=== PATIENT | female | born 1990 | race Caucasian/White ===

== ENCOUNTER 2018-02-08 11:11 | Emergency (ER) | payer SELFPAY ==
--- NOTE | 2018-02-08 12:31 | RAD REPORT ---
EXAM DESCRIPTION: RAD - Foot Left 3 View - 02/08/2018 12:16 pm CLINICAL HISTORY: Left foot pain COMPARISON: None. FINDINGS: Thin lucency is identified involving the base of the metatarsal presumably related to the patient's known prior fracture. Correlation with point tenderness, however, in this location is advis ed. No acute fracture is definitively seen.
--- NOTE | 2018-02-08 13:31 | EDPHYS ---
Physician Documentation [facility] Name: Nataliia Allen Age: 27 yrs Sex: Female : 1990 Arrival Date: 02/08/2018 Time: 11:14 Bed 30 Private MD: ED Physician Fabian Fuller HPI: 02/08 13:29 This 27 yrs old Female presents to ER via Ambulatory with complaints of Foot kb Injury. 13:29 The patient presents with pain, that is acute. The complaints affect the lateral aspect kb of left foot. Context: The problem was sustained outdoors, resulted from a mis-step, into pool, the patient can fully bear weight, the patient is able to ambulate. Onset: The symptoms/episode began/occurred 3 week(s) ago. Modifying factors: The symptoms are alleviated by nothing. the symptoms are aggravated by standing/walking for long peroids. Associated signs and symptoms: The patient has no apparent associated signs or symptoms. Treatment prior to arrival includes: no previous treatment. Severity of symptoms: At their worst the symptoms were mild, moderate, in the emergency department the symptoms are unchanged. The patient has not experienced similar symptoms in the past. The patient has not recently seen a physician. 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 - Social history:: Smoking status: Patient/guardian denies using tobacco. ROS: 13:19 Constitutional: Negative for fever, chills, and weight loss, Cardiovascular: Negative kb for chest pain, palpitations, and edema, Respiratory: Negative for shortness of breath, cough, wheezing, and pleuritic chest pain, Abdomen/GI: Negative for abdominal pain, nausea, vomiting, diarrhea, and constipation, Skin: Negative for injury, rash, and discoloration, Neuro: Negative for headache, weakness, numbness, tingling, and seizure. 13:19 MS/extremity: Positive for pain, of the lateral side of left foot. Exam: 13:28 Constitutional: This is a well developed, well nourished patient who is awake, alert, kb and in no acute distress. Head/Face: Normocephalic, atraumatic. Chest/axilla: Normal chest wall appearance and motion. Nontender with no deformity. No lesions are appreciated. Cardiovascular: Regular rate and rhythm with a normal S1 and S2. No gallops, murmurs, or rubs. Normal PMI, no JVD. No pulse deficits. Respiratory: Lungs have equal breath sounds bilaterally, clear to auscultation and percussion. No rales, rhonchi or wheezes noted. No increased work of breathing, no retractions or nasal flaring. Abdomen/GI: Soft, non-tender, with normal bowel sounds. No distension or tympany. No guarding or rebound. No evidence of tenderness throughout. Skin: Warm, dry with normal turgor. Normal color with no rashes, no lesions, and no evidence of cellulitis. Neuro: Awake and alert, GCS 15, oriented to person, place, time, and situation. Cranial nerves II-XII grossly intact. Motor strength 5/5 in all extremities. Sensory grossly intact. Cerebellar exam normal. Normal gait. 13:28 Musculoskeletal/extremity: Extremities: grossly normal except: noted in the lateral side of left foot: pain, ROM: intact in all extremities, Circulation is intact in all extremities. Sensation intact. Weight bearing: able to fully bear weight. Vital Signs: 11:41 BP 129 / 79; Pulse 86; Resp 20; Temp 98.0; Pulse Ox 98% on R/A; Weight 79.38 kg; Height aj 5 ft. 3 in. (160.02 cm); Pain 4/10; 13:05 BP 118 / 81; Pulse 77; Resp 16; Pulse Ox 99% on R/A; Pain 4/10; em 11:41 Body Mass Index 31.00 (79.38 kg, 160.02 cm) aj MDM: 12:58 Patient medically screened. kb 13:28 Data reviewed: vital signs, nurses notes. Data interpreted: Pulse oximetry: on room air kb is 98 %. Interpretation: normal. Counseling: I had a detailed discussion with the patient and/or guardian regarding: the historical points, exam findings, and any diagnostic results supporting the discharge/admit diagnosis, radiology results, the need for outpatient follow up, a orthopedic surgeon, to return to the emergency department if symptoms worsen or persist or if there are any questions or concerns that arise at home. 02/08 11:44 Order name: Foot Left 3 View XRAY; Complete Time: 12:32 kb Administered Medications: No medications were administered Disposition: 16:33 Co-signature as Attending Physician, Fabian Fuller MD. Disposition: 02/08/18 13:31 Discharged to Home. Impression: Pain in left foot. - Condition is Stable. - Discharge Instructions: Foot Sprain, Musculoskeletal Pain. - Medication Reconciliation Form, Thank You Letter, Antibiotic Education, Prescription Opioid Use form. - Follow up: Emergency Department; When: As needed; Reason: Worsening of condition. Follow up: Private Physician; When: 2 - 3 days; Reason: Recheck today's complaints, Continuance of care, Re-evaluation by your physician. Signatures: Dispatcher [employer] Em Mcclelland, MOTION PICTURE EQUIPMENT SUPERVISOR-C MOTION PICTURE EQUIPMENT SUPERVISOR-Ckb Gricelda Gonzalez, RN RN Gilberto Reese, PUBLIC HEALTH TECHNICIAN PUBLIC HEALTH TECHNICIAN Fabian Farah MD MD Corrections: (The following items were deleted from the chart) 12:32 11:44 Foot Left 3 View+RAD.RAD.BRZ ordered. TEREZAVT EZRA
--- NOTE | 2018-02-08 13:31 | ER ---
Nurse's Notes [facility] Name: Nataliia Allen Age: 27 yrs Sex: Female : 1990 Arrival Date: 02/08/2018 Time: 11:14 Bed 30 Private MD: Diagnosis: Pain in left foot Presentation: 02/08 11:39 Presenting complaint: Patient states: Left foot pain for 3 weeks. Patient reports foot aj was fractured 1 yr ago. Pain is worse with walking. Transition of care: patient was not received from another setting of care. Onset of symptoms was January 17, 2018. Initial Sepsis Screen: Does the patient meet any 2 criteria? No. Patient's initial sepsis screen is negative. Does the patient have a suspected source of infection? No. Patient's initial sepsis screen is negative. Care prior to arrival: None. 11:39 Method Of Arrival: Ambulatory aj 11:39 Acuity: GITA 4 aj Triage Assessment: 11:41 General: Appears in no apparent distress. comfortable, Behavior is calm, cooperative, aj appropriate for age. Pain: Complains of pain in dorsum of left foot Pain currently is 4 out of 10 on a pain scale. Neuro: Level of Consciousness is awake, alert, obeys commands, Oriented to person, place, time, situation, Appropriate for age. Respiratory: Airway is patent Respiratory effort is even, unlabored, Respiratory pattern is regular, symmetrical. Derm: Skin is intact, is healthy with good turgor, Skin is pink, warm \T\ dry. normal. Musculoskeletal: Circulation, motion, and sensation intact. Reports pain in dorsum of left foot. 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 - Social history:: Smoking status: Patient/guardian denies using tobacco. Screenin:14 Abuse screen: Denies threats or abuse. Nutritional screening: No deficits noted. em Tuberculosis screening: No symptoms or risk factors identified. Fall Risk None identified. Assessment: 13:05 General: Appears in no apparent distress. uncomfortable, Behavior is calm, cooperative, em Reports slipping down some stairs about 3 weeks ago, has been walking on it but still hurts, pain has not resolved. Pain: Complains of pain in left foot Pain currently is 4 out of 10 on a pain scale. Neuro: Level of Consciousness is awake, alert, obeys commands, Oriented to person, place, time, situation, Appropriate for age. Cardiovascular: Capillary refill < 3 seconds Patient's skin is warm and dry. Respiratory: Airway is patent Respiratory effort is even, unlabored, Respiratory pattern is regular, symmetrical. GI: Abdomen is flat. : No signs and/or symptoms were reported regarding the genitourinary system. EENT: No signs and/or symptoms were reported regarding the EENT system. Derm: Skin is intact, Skin is pink, warm \T\ dry. Musculoskeletal: Capillary refill < 3 seconds, Range of motion: intact in all extremities, Swelling present in left foot. 13:15 General: The previous assessment is accurate, call light remains within reach. . ss Vital Signs: 11:41 BP 129 / 79; Pulse 86; Resp 20; Temp 98.0; Pulse Ox 98% on R/A; Weight 79.38 kg; Height aj 5 ft. 3 in. (160.02 cm); Pain 4/10; 13:05 BP 118 / 81; Pulse 77; Resp 16; Pulse Ox 99% on R/A; Pain 4/10; em 11:41 Body Mass Index 31.00 (79.38 kg, 160.02 cm) aj ED Course: 11:14 Patient arrived in ED. sb2 11:41 Triage completed. aj 11:41 Arm band placed on left wrist. Patient placed in waiting room, Patient notified of wait aj time. X-ray ordered. 11:44 Em Coffey FNP-C is PHCP. kb 11:44 Fabian Fuller MD is Attending Physician. kb 12:17 Foot Left 3 View XRAY In Process Unspecified. EDMS 12:58 Gilberto Curtis LVN is Primary Nurse. em 13:14 No provider procedures requiring assistance completed. Patient did not have IV access em during this emergency room visit. 13:15 Patient has correct armband on for positive identification. Bed in low position. Call em light in reach. Side rails up X 1. Administered Medications: No medications were administered Outcome: 13:31 Discharge ordered by . kb 13:40 Discharged to home ambulatory. em 13:40 Condition: good 13:40 Discharge instructions given to patient, Instructed on discharge instructions, follow up and referral plans. Demonstrated understanding of instructions, follow-up care. 13:45 Patient left the ED. em Signatures: Dispatcher [employer] EDEm Garcia, TESFAYE-C TESFAYE-Gricelda Vega RN RN Gilberto Reese, HEALTH INFORMATICS ADVISOR HEALTH INFORMATICS ADVISOR em Rosangela Mitchell RN RN Lilly Rosenthal sb2
[2018-02-08 13:48] VITALS: TEMP 98
[2018-02-08 13:50] VITALS: BP 118/81; O2SAT 99
== END 2018-02-08 13:45 | disposition home or self-care (01) ==
LOC: ER 11:11
DX: M79.672 Pain in left foot (principal); F41.9 Anxiety disorder, unspecified
CPT/HCPCS: 99283

== ENCOUNTER 2018-04-25 22:10 | Emergency (ER) | payer SELFPAY ==
[2018-04-25 23:16] LABS: Absolute Lymphocytes (CBC) 2.5 K/uL (0.7-4.9); Absolute Monocytes 0.5 K/uL (0.1-1.3); Absolute Neutrophil 3.1 K/uL (1.8-8.0); Basophils % 1.4 % (0-1.3); Eosinophils % 3.5 % (0-4.4); Hematocrit 36.4 % (36.0-45.0); Lymphocytes % 38.9 % (15.3-44.8); MCH 30.4 pg (27.0-35.0); MPV 7.8 fL (7.6-11.3); Monocytes % 7.5 % (3.3-12.3); RBC Red Blood Cell Count 4.13 M/uL (3.86-4.86)
[2018-04-25 23:31] LABS: Protime INR 0.98
[2018-04-25 23:38] LABS: Urine Blood NEGATIVE (NEG); Urine Glucose NEGATIVE (NEG); Urine pH 6.5 (5.0-7.0)
[2018-04-25 23:39] LABS: Urine Protein NEGATIVE (NEG)
[2018-04-25 23:41] LABS: Barbiturates NEGATIVE (NEGATIVE); Benzodiazepines POSITIVE (NEGATIVE); Cocaine NEGATIVE (NEGATIVE); METHAMPHETAM NEGATIVE (NEGATIVE); Methadone NEGATIVE (NEGATIVE); Opiates NEGATIVE (NEGATIVE); Phencyclidine NEGATIVE (NEGATIVE); THC Cannibis NEGATIVE (NEGATIVE)
[2018-04-25 23:41] LABS: ALT/SGPT 42 U/L (12-78); AST/SGOT 22 U/L (15-37); Alkaline Phosphatase 57 U/L (45-117); BUN Blood Urea Nitrogen 11 mg/dL (7-18); Bicarbonate 24 mmol/L (21-32); Bilirubin Direct 0.1 mg/dL (0-0.2); Bilirubin Total 0.4 mg/dL (0.2-1.0); Glucose Level 81 mg/dL (74-106); Potassium 3.8 mmol/L (3.5-5.1); Protein, Total 7.7 g/dL (6.4-8.2); Sodium Level 146 mmol/L (136-145)
[2018-04-25 23:42] LABS: Alcohol Serum/Plasma 146 mg/dL (0-3)
--- NOTE | 2018-04-26 00:13 | EDPHYS ---
Physician Documentation [facility] Name: Nataliia Allen Age: 27 yrs Sex: Female : 1990 Arrival Date: 04/25/2018 Time: 22:11 Bed 7 Private MD: ED Physician Adryan Bejarano HPI: 04/25 23:05 This 27 yrs old Female presents to ER via EMS with complaints of Suicidal snw Ideation. 23:05 The patient presents to the emergency department with anxiety, over a relationship, snw over work, takes prescribed xanax and occasional ETOH. Onset: The symptoms/episode began/occurred suddenly, and became persistent. Past psychiatric history: Prior diagnosis: anxiety, Psychiatric medications include: Xanax, Primary psychiatric physician: the patient does not have a primary psychiatric physician, Dr. Toth, the patient has not had a prior suicide gesture, the patient does not have a previous inpatient psychiatric history. Associated signs and symptoms: Pertinent positives; anxiety. Severity of symptoms: At their worst the symptoms were severe in the emergency department the symptoms have improved. denies. The patient has not recently seen a physician. Pt states she and her were having an argument. He left the room and she felt he didn't care so she put a handful of xanax in her mouth. Spouse tried to make her spit them out. He called EMS. Spouse told EMS that earlier today pt tried to hang herself with a belt and was banging her head against the wall.. 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 - Social history:: Smoking status: Patient/guardian denies using tobacco, Patient uses alcohol, occasionally. - Ebola Screening: : No symptoms or risks identified at this time. ROS: 23:05 Constitutional: Negative for fever, chills, and weight loss, Eyes: Negative for injury, snw pain, redness, and discharge, ENT: Negative for injury, pain, and discharge, Neck: Negative for injury, pain, and swelling, Cardiovascular: Negative for chest pain, palpitations, and edema, Respiratory: Negative for shortness of breath, cough, wheezing, and pleuritic chest pain, Abdomen/GI: Negative for abdominal pain, nausea, vomiting, diarrhea, and constipation, Back: Negative for injury and pain, : Negative for injury, bleeding, discharge, and swelling, MS/Extremity: Negative for injury and deformity, Skin: Negative for injury, rash, and discoloration, Neuro: Negative for headache, weakness, numbness, tingling, and seizure. 23:05 Psych: Positive for anxiety, suicide gesture, suicidal ideation. Exam: 23:11 Constitutional: This is a well developed, well nourished patient who is awake, alert, snw and in no acute distress. + ETOH Eyes: Pupils equal round and reactive to light, extra-ocular motions intact. Lids and lashes normal. Conjunctiva and sclera are non-icteric and not injected. Cornea within normal limits. Periorbital areas with no swelling, redness, or edema. ENT: Nares patent. No nasal discharge, no septal abnormalities noted. Tympanic membranes are normal and external auditory canals are clear. Oropharynx with no redness, swelling, or masses, exudates, or evidence of obstruction, uvula midline. Mucous membranes moist. Neck: Trachea midline, no thyromegaly or masses palpated, and no cervical lymphadenopathy. Supple, full range of motion without nuchal rigidity, or vertebral point tenderness. No Meningismus. Chest/axilla: Normal chest wall appearance and motion. Nontender with no deformity. No lesions are appreciated. Cardiovascular: Regular rate and rhythm with a normal S1 and S2. No gallops, murmurs, or rubs. Normal PMI, no JVD. No pulse deficits. 23:11 Respiratory: Lungs have equal breath sounds bilaterally, clear to auscultation and percussion. No rales, rhonchi or wheezes noted. No increased work of breathing, no retractions or nasal flaring. Abdomen/GI: Soft, non-tender, with normal bowel sounds. No distension or tympany. No guarding or rebound. No evidence of tenderness throughout. Back: No spinal tenderness. No costovertebral tenderness. Full range of motion. Skin: Warm, dry with normal turgor. Normal color with no rashes, no lesions, and no evidence of cellulitis. MS/ Extremity: Pulses equal, no cyanosis. Neurovascular intact. Full, normal range of motion. Neuro: Awake and alert, GCS 15, oriented to person, place, time, and situation. Cranial nerves II-XII grossly intact. Motor strength 5/5 in all extremities. Sensory grossly intact. Cerebellar exam normal. Normal gait. 23:11 Head/face: Noted is contusion, that is superficial, of the forehead, ecchymosis, that is mild. 23:11 Psych: Behavior/mood is anxious, Affect is calm, Oriented to person, place, time, Patient has no thoughts/intents to harm self or others. Judgement / Insight is impaired. Vital Signs: 22:23 BP 104 / 74; Pulse 94; Resp 18; Temp 98.7(O); Pulse Ox 98% on R/A; Weight 72.57 kg; ea Height 5 ft. 7 in. (170.18 cm); Pain 6/10; 23:28 BP 102 / 73; Pulse 91; Resp 18; Pulse Ox 98% on R/A; tl2 04/26 00:28 BP 117 / 82; Pulse 102; Resp 18; Pulse Ox 100% on R/A; tl2 04/25 22:23 Body Mass Index 25.06 (72.57 kg, 170.18 cm) ea MDM: 04/25 22:16 Patient medically screened. snw 04/26 00:14 Data reviewed: vital signs, nurses notes. Data interpreted: Pulse oximetry: on room air snw is 98 %. Interpretation: normal. Counseling: I had a detailed discussion with the patient and/or guardian regarding: the historical points, exam findings, and any diagnostic results supporting the discharge/admit diagnosis, lab results, the need for outpatient follow up, to return to the emergency department if symptoms worsen or persist or if there are any questions or concerns that arise at home. Other consultation: [facility] health deputy. Special discussion: Based on the history and exam findings, there is no indication for further emergent testing or inpatient evaluation. I discussed with the patient/guardian the need to see the psychiatrist for further evaluation of the symptoms. 04/25 22:49 Order name: Acetaminophen; Complete Time: 23:45 snw 04/25 22:49 Order name: Basic Metabolic Panel; Complete Time: 23:45 snw 04/25 22:49 Order name: CBC with Diff; Complete Time: 23:33 snw 04/25 22:49 Order name: ETOH Level; Complete Time: 23:45 snw 04/25 22:49 Order name: Hepatic Function; Complete Time: 23:45 snw 04/25 22:49 Order name: PT-INR; Complete Time: 23:39 snw 04/25 22:49 Order name: Urine Test (obtain specimen); Complete Time: 23:27 snw 04/25 22:49 Order name: Ptt, Activated; Complete Time: 23:39 snw 04/25 22:49 Order name: Salicylate; Complete Time: 00:03 snw 04/25 22:49 Order name: Urine Drug Screen; Complete Time: 23:45 snw 04/25 22:49 Order name: EKG; Complete Time: 22:50 snw 04/25 23:30 Order name: Urine Dipstick--Ancillary (enter results); Complete Time: 23:39 ms 04/25 23:30 Order name: Urine --Ancillary (enter results); Complete Time: 23:39 ms 04/25 22:49 Order name: EKG - Nurse/Tech; Complete Time: 23:09 snw 04/25 22:49 Order name: IV Saline Lock; Complete Time: 23:09 snw 04/25 22:49 Order name: Labs collected and sent; Complete Time: 23:09 snw 04/25 22:49 Order name: Urine Dipstick-Ancillary (obtain specimen); Complete Time: 23:28 snw Administered Medications: 00:27 Drug: Tylenol 1000 mg Route: PO; tl2 00:29 Follow up: Response: No adverse reaction; Medication administered at discharge. tl2 Disposition: 08:32 Co-signature as Attending Physician, Adryan Bejarano MD I agree with the assessment and dawson plan of care. Disposition: 04/26/18 00:12 Discharged to Home. Impression: Anxiety disorder, unspecified, Alcohol use, unspecified with intoxication, unspecified. - Condition is Stable. - Discharge Instructions: Alcohol Intoxication, Social Anxiety Disorder, Generalized Anxiety Disorder. - Medication Reconciliation Form, Thank You Letter, Antibiotic Education, Prescription Opioid Use form. - Follow up: Private Physician; When: 1 - 2 days; Reason: Recheck today's complaints, Continuance of care, Re-evaluation by your physician. Follow up: Emergency Department; When: As needed; Reason: Worsening of condition. Signatures: Dispatcher [employer] EDMS Adryan Bejarano MD MD cha Therrien, Shelly, MACHINE HEEL SEAT FITTER-C MACHINE HEEL SEAT FITTER-Csnw Violeta Murillo, RN RN tl2 Lety Caraballo RN RN ea Corrections: (The following items were deleted from the chart) 00:30 00:12 04/26/2018 00:12 Discharged to Home. Impression: Anxiety disorder, unspecified; tl2 Alcohol use, unspecified with intoxication, unspecified. Condition is Stable. Forms are Medication Reconciliation Form, Thank You Letter, Antibiotic Education, Prescription Opioid Use. Follow up: Private Physician; When: 1 - 2 days; Reason: Recheck today's complaints, Continuance of care, Re-evaluation by your physician. Follow up: Emergency Department; When: As needed; Reason: Worsening of condition. snw
--- NOTE | 2018-04-26 00:13 | ER ---
Nurse's Notes [facility] Name: Nataliia Allen Age: 27 yrs Sex: Female : 1990 Arrival Date: 04/25/2018 Time: 22:11 Bed 7 Private MD: Diagnosis: Anxiety disorder, unspecified;Alcohol use, unspecified with intoxication, unspecified Presentation: 04/25 22:18 Presenting complaint: EMS states: Reports pt was at home and had a disagreement with ea her she tried getting a pill bottle out of his hand and fell and hit her head. Pt reported she had a few beers. Transition of care: patient was not received from another setting of care. Onset of symptoms was April 25, 2018. Risk Assessment: Do you want to hurt yourself or someone else? Patient reports no desire to harm self or others. Initial Sepsis Screen: Does the patient meet any 2 criteria? No. Patient's initial sepsis screen is negative. Does the patient have a suspected source of infection? No. Patient's initial sepsis screen is negative. Care prior to arrival: Medication(s) given: xanax 1mg x 2. 22:18 Method Of Arrival: EMS: [facility] ea 22:18 Acuity: GITA 2 ea Triage Assessment: 22:23 General: Appears in no apparent distress. Behavior is calm, cooperative, appropriate ea for age. Pain: Complains of pain in headache Pain does not radiate. Pain currently is 7 out of 10 on a pain scale. Quality of pain is described as aching. 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 - Social history:: Smoking status: Patient/guardian denies using tobacco, Patient uses alcohol, occasionally. - Ebola Screening: : No symptoms or risks identified at this time. Screenin:25 Nutritional screening: No deficits noted. Tuberculosis screening: No symptoms or risk ea factors identified. 22:26 Abuse screen: Denies threats or abuse. ea 22:26 Fall Risk Fall in past 12 months (25 points). ea Assessment: 22:48 General: Appears in no apparent distress. comfortable, Behavior is calm, cooperative, tl2 appropriate for age. Pain: Complains of pain in forehead. Neuro: Level of Consciousness is awake, alert, obeys commands, Oriented to person, place, time, situation. Cardiovascular: Denies chest pain. Respiratory: Airway is patent Respiratory effort is even, unlabored, Respiratory pattern is regular, symmetrical. GI: No signs and/or symptoms were reported involving the gastrointestinal system. : No signs and/or symptoms were reported regarding the genitourinary system. Derm: Skin is pink, warm \T\ dry. 04/26 00:00 Reassessment: Patient appears in no apparent distress at this time. Patient and/or tl2 family updated on plan of care and expected duration. Pain level reassessed. Patient is alert, oriented x 3, equal unlabored respirations, skin warm/dry/pink. [facility] at bedside. 00:28 Reassessment: Patient appears in no apparent distress at this time. [facility] approved tl2 for pt for discharge/outpatient. Pt verbalized understanding of discharge instructions and need for follow up. Psych: 04/25 22:45 Subjective: Patient's mood is elevated, Delusions are denied, Hallucinations are denied tl2 Having thoughts of Pt states she did not want to hurt herself on purpose. Tow stated that he got a report from an officer that she tried to hang herself with a belt and was banging her head against the wall. Objective: Patient is cooperative, Speech is normal, Affect is appropriate. Interventions: Removed personal items and placed in bag. Patient placed in hospital gown. Searched person for dangerous items. Belonging list filled out. Suicide Risk Assessment: Sad Person Scale: Sex of patient: Female: Score 0 points. Age of patient: Score 1 point if patient 15-34. Depression: Score 1 point if signs of depression are present. Previous Attempt: Score 0 point if patient has not previously attempted suicide. Substance Abuse: Score 1 point if patient abuses alcohol or drugs. Rational Thinking: Score 0 point if patient has rational thinking. Social Support: Score 0 if social support is present/available. Organized Plan: Score 0 if patient did not have an organized plan in place. Relationship: Score 0 point if patient has a spouse or domestic partner. Chronic Sickness: Score 0 point if patient does not have a chronic illness, debilitating, or severe disorder. TOTAL POINTS: If total points are 3-4, proposed clinical action is close follow-up/consider hospitalization. Safety Checks: Personal items have been removed. Door is open. No visitors are present at this time. Patient uses 2 beers. Commitment: Patient will be a voluntary commitment. Vital Signs: 22:23 BP 104 / 74; Pulse 94; Resp 18; Temp 98.7(O); Pulse Ox 98% on R/A; Weight 72.57 kg; ea Height 5 ft. 7 in. (170.18 cm); Pain 6/10; 23:28 BP 102 / 73; Pulse 91; Resp 18; Pulse Ox 98% on R/A; tl2 04/26 00:28 BP 117 / 82; Pulse 102; Resp 18; Pulse Ox 100% on R/A; tl2 04/25 22:23 Body Mass Index 25.06 (72.57 kg, 170.18 cm) ea ED Course: 04/25 22:11 Patient arrived in ED. tl2 22:14 [facility] Hawthorne F[facility]-C [facility]. snw 22:14 Adryan Bejarano MD is Attending Physician. snw 22:21 Triage completed. ea 22:25 Arm band placed on right wrist. Patient placed in an exam room, on a stretcher. ea 22:25 Patient has correct armband on for positive identification. Placed in gown. Bed in low ea position. Call light in reach. 22:51 Violeta Murillo, DHARMESH is Primary Nurse. tl2 23:17 Inserted saline lock: 20 gauge in right antecubital area, using aseptic technique. tl2 Blood collected. 23:30 Safety checks: Items removed: yes. Door open/sign placed on door: yes. Family/friend mw2 present: no. Sitter present: Yes. 23:45 Safety checks: Items removed: yes. Door open/sign placed on door: yes. Family/friend mw2 present: no. Sitter present: Yes. Other: [facility] field sales representative here to talk with patient. 04/26 00:00 Safety checks: Items removed: yes. Door open/sign placed on door: yes. Family/friend mw2 present: no. Sitter present: Yes. 00:15 Safety checks: Items removed: yes. Door open/sign placed on door: yes. Family/friend mw2 present: no. Sitter present: Yes. Safety checks: Items removed: yes. Door open/sign placed on door: yes. Family/friend present: no. Sitter present: Yes. 00:28 No provider procedures requiring assistance completed. IV discontinued, intact, tl2 bleeding controlled, No redness/swelling at site. Pressure dressing applied. Administered Medications: 00:27 Drug: Tylenol 1000 mg Route: PO; tl2 00:29 Follow up: Response: No adverse reaction; Medication administered at discharge. tl2 Outcome: 00:12 Discharge ordered by . snisidoro 00:28 Discharged to home ambulatory, with family. tl2 00:28 Condition: stable 00:28 Discharge instructions given to patient, Instructed on discharge instructions, follow up and referral plans. Demonstrated understanding of instructions, follow-up care. 00:30 Patient left the ED. tl2 Signatures: Lore Hawthorne, CROSS COUNTRY/TRACK AND FIELD COACH-C CROSS COUNTRY/TRACK AND FIELD COACH-Csnw Violeta Murillo RN DHARMESH 2 Lety Caraballo RN RN ea [place], MyKena mw2 Corrections: (The following items were deleted from the chart) 04/25 23:37 23:26 Safety checks: Items removed: yes. Door open/sign placed on door: yes. mw2 Family/friend present: no. Sitter present: Yes. mw2 04/26 00:28 00:28 Reassessment: Patient appears in no apparent distress at this time. [facility]patient. tl2
[2018-04-26] MEDS ORDERED: ACETAMINOPHEN 500 MG TAB ONE (00:22)
[2018-04-26 00:34] VITALS: TEMP 98.7
[2018-04-26 00:36] VITALS: BP 117/82; O2SAT 100
--- NOTE | 2018-04-26 10:00 | EKG ---
Test Date: 2018-04-25 Test Time: 23:10:34 Grief Counselor: ADAM MEASUREMENT RESULTS: Intervals: Rate: 86 WI: 154 QRSD: 80 QT: 348 QTc: 416 Kimberly: P: 44 WI: 154 QRS: 64 T: 47 INTERPRETIVE STATEMENTS: Normal sinus rhythm with sinus arrhythmia Normal ECG Compared to ECG 09/18/2017 17:48:08 No significant changes Electronically Signed On 04-26-18 09:59:37 CDT by Calvin Del Rosario
== END 2018-04-26 00:30 | disposition home or self-care (01) ==
LOC: ER 22:10
DX: F41.9 Anxiety disorder, unspecified (principal); R45.851 Suicidal ideations
CPT/HCPCS: 36415; 80048; 80076; 80307; 80320; 80329; 81003; 81025; 85025; 85610; 85730; 93005; 99285

== ENCOUNTER 2018-10-14 09:32 | Emergency (ER) | payer SELFPAY ==
[2018-10-14 09:54] LABS: Urine Blood NEGATIVE (NEG); Urine Glucose NEGATIVE (NEG); Urine Protein TRACE (NEG)
[2018-10-14 10:03] LABS: Absolute Lymphocytes (CBC) 0.3 K/uL (0.7-4.9); Absolute Monocytes 0.6 K/uL (0.1-1.3); Absolute Neutrophil 12.9 K/uL (1.8-8.0); Basophils % 0.1 % (0-1.3); Eosinophils % 0.5 % (0-4.4); Hematocrit 42.2 % (36.0-45.0); Lymphocytes % 2.1 % (15.3-44.8); MPV 7.6 fL (7.6-11.3); RBC Red Blood Cell Count 4.71 M/uL (3.86-4.86)
[2018-10-14 10:20] LABS: Albumin 4.3 g/dL (3.4-5.0); Bilirubin Direct 0.1 mg/dL (0-0.2); Bilirubin Total 0.5 mg/dL (0.2-1.0); Potassium 3.9 mmol/L (3.5-5.1); Protein, Total 8.8 g/dL (6.4-8.2)
[2018-10-14 10:26] LABS: Blood Morphology Comment NOT SEEN (NOT SEEN); Platelet Estimate ADEQ; Urine White Blood Cell Casts OK
--- NOTE | 2018-10-14 11:11 | RAD REPORT ---
EXAM DESCRIPTION: CTAbdomen Pelvis W Contrast - 10/14/2018 10:45 am CLINICAL HISTORY: Abdominal pain. ABD PAIN COMPARISON: Abdomen Pelvis W Contrast dated 08/19/2016 TECHNIQUE: Biphasic CT imaging of the abdomen and pelvis was performed with 100 ml non-ionic IV cont rast. All CT scans are performed using dose optimization technique as appropriate and may include automated exposure control or mA/KV adjustment according to patient size. FINDINGS: The lung bases are clear. The liver, spleen, pancreas, adrenal glands and kidneys are within normal limits. No bowel obstruction, free air, free fluid or abscess. The appendix is normal. No evidence of signi ficant lymphadenopathy. No suspicious bony findings. IMPRESSION: No acute intra-abdominal or pelvic finding.
--- NOTE | 2018-10-14 11:21 | ER ---
Nurse's Notes [facility] Name: Nataliia Allen Age: 27 yrs Sex: Female : 1990 Arrival Date: 10/14/2018 Time: 09:35 Bed 13 Private MD: Diagnosis: Vomiting Presentation: 10/14 09:39 Presenting complaint: Patient states: Nausea, vomiting, and diarrhea started about 0400 rb1 this morning. Pt. stated, "I feel like I have food poisoning.". Transition of care: patient was not received from another setting of care. Onset of symptoms was October 14, 2018 at 04:00. Risk Assessment: Do you want to hurt yourself or someone else? Patient reports no desire to harm self or others. Initial Sepsis Screen: Does the patient meet any 2 criteria? No. Patient's initial sepsis screen is negative. Does the patient have a suspected source of infection? No. Patient's initial sepsis screen is negative. Care prior to arrival: None. 09:39 Method Of Arrival: Ambulatory rb1 09:39 Acuity: GITA 3 rb1 Triage Assessment: 09:39 General: Appears in no apparent distress. comfortable, Behavior is calm, cooperative, rb1 Reports chills for fever for feeling ill for 0-12 hours. Pain: Complains of pain in abdomen Pain began 0400 this morning. Neuro: Level of Consciousness is awake, alert, obeys commands, Oriented to person, place, time, situation. Cardiovascular: Capillary refill < 3 seconds is brisk in bilateral fingers. Respiratory: Reports shortness of breath Airway is patent Respiratory effort is even, unlabored, Respiratory pattern is regular, symmetrical. GI: Reports diarrhea, nausea, vomiting, since 0400 this morning. : No signs and/or symptoms were reported regarding the genitourinary system. Derm: Skin is pink, warm \\T\\ dry. 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 - Social history:: Smoking status: Patient/guardian denies using tobacco. - Ebola Screening: : Patient negative for fever greater than or equal to 101.5 degrees Fahrenheit, and additional compatible Ebola Virus Disease symptoms. Screenin:39 Abuse screen: Denies threats or abuse. Nutritional screening: pt. unable to eat or rb1 drink anything without vomiting. Tuberculosis screening: No symptoms or risk factors identified. Fall Risk None identified. Assessment: 09:39 General: See triage assessment. rb1 10:30 Reassessment: Patient appears in no apparent distress at this time. No changes from rb1 previously documented assessment. 11:30 Reassessment: Patient appears in no apparent distress at this time. Patient and/or rb1 family updated on plan of care and expected duration. Pain level reassessed. Patient is alert, oriented x 3, equal unlabored respirations, skin warm/dry/pink. Family at bedside. Vital Signs: 09:39 BP 110 / 78; Pulse 104; Resp 16; Temp 97.6(O); Pulse Ox 99% on R/A; Weight 77.11 kg rb1 (R); Height 5 ft. 3 in. (160.02 cm) (R); Pain 8/10; 10:39 BP 99 / 75; Pulse 97; Resp 18; Pulse Ox 100% on R/A; dh3 11:39 BP 98 / 72; Pulse 95; Resp 17; Pulse Ox 99% on R/A; rb1 09:39 Body Mass Index 30.11 (77.11 kg, 160.02 cm) [facility] ED Course: 09:35 Patient arrived in ED. tw3 09:38 Kandy Nieves, RN is Primary Nurse. rb1 09:39 Shadia Kaye FNP is [facility]. nh 09:39 Dany Thorne MD is Attending Physician. nh 09:39 Arm band placed on right wrist. rb1 09:39 Patient has correct armband on for positive identification. Bed in low position. Call rb1 light in reach. Side rails up X 1. Pulse ox on. NIBP on. 09:52 Triage completed. rb1 09:54 Initial lab(s) drawn, by me, sent to lab. Inserted saline lock: 20 gauge in right dh3 antecubital area, using aseptic technique. Blood collected. 10:45 CT Abd/Pelvis - W/Contrast In Process Unspecified. EDMS 11:54 No provider procedures requiring assistance completed. IV discontinued, intact, rb1 bleeding controlled, No redness/swelling at site. Pressure dressing applied. Administered Medications: 11:50 Drug: Zofran 4 mg Route: PO; rb1 11:50 Follow up: Response: Medication administered at discharge. rb1 Outcome: 11:21 Discharge ordered by . wi 11:54 Patient left the ED. rb1 11:54 Discharged to home ambulatory, with family. rb1 11:54 Condition: stable 11:54 Discharge instructions given to patient, Instructed on discharge instructions, follow up and referral plans. medication usage, Demonstrated understanding of instructions, follow-up care, medications, Prescriptions given X 2. Signatures: Dispatcher [employer] EDMS Shadia Kaye, GERMAN TEACHER GERMAN TEACHER Kandy Monk RN RN rb1 Brian, Taniya 3 Sasha Zapata 3 Corrections: (The following items were deleted from the chart) 12:03 12:02 Patient left the ED. rb1 rb1
--- NOTE | 2018-10-14 11:21 | EDPHYS ---
Physician Documentation [facility] Name: Nataliia Allen Age: 27 yrs Sex: Female : 1990 Arrival Date: 10/14/2018 Time: 09:35 Bed 13 Private MD: ED Physician Dany Thorne HPI: 10/14 11:18 This 27 yrs old Female presents to ER via Ambulatory with complaints of nh Vomiting, Abdominal Pain. 11:18 The patient presents to the emergency department with nausea, vomiting, diarrhea, nh abdominal pain. Onset: The symptoms/episode began/occurred this morning. Possible causes: unknown. The symptoms are aggravated by food , The symptoms are alleviated by nothing. Associated signs and symptoms: The patient has no apparent associated signs or symptoms. Severity of symptoms: At their worst the symptoms were moderate just prior to arrival, in the emergency department the symptoms are unchanged. The patient has not experienced similar symptoms in the past. The patient has not recently seen a physician. 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 - Social history:: Smoking status: Patient/guardian denies using tobacco. - Ebola Screening: : Patient negative for fever greater than or equal to 101.5 degrees Fahrenheit, and additional compatible Ebola Virus Disease symptoms. ROS: 11:18 Constitutional: Negative for fever, chills, and weight loss, Eyes: Negative for injury, nh pain, redness, and discharge, ENT: Negative for injury, pain, and discharge, Neck: Negative for injury, pain, and swelling, Cardiovascular: Negative for chest pain, palpitations, and edema, Respiratory: Negative for shortness of breath, cough, wheezing, and pleuritic chest pain, Back: Negative for injury and pain, : Negative for injury, bleeding, discharge, and swelling, MS/Extremity: Negative for injury and deformity, Skin: Negative for injury, rash, and discoloration, Neuro: Negative for headache, weakness, numbness, tingling, and seizure, Psych: Negative for depression, anxiety, suicide ideation, homicidal ideation, and hallucinations, Allergy/Immunology: Negative for hives, rash, and allergies, Endocrine: Negative for neck swelling, polydipsia, polyuria, polyphagia, and marked weight changes, Hematologic/Lymphatic: Negative for swollen nodes, abnormal bleeding, and unusual bruising. 11:18 Abdomen/GI: Positive for abdominal pain, nausea and vomiting, nausea, vomiting, and diarrhea. Exam: 11:18 Constitutional: This is a well developed, well nourished patient who is awake, alert, nh and in no acute distress. Head/Face: Normocephalic, atraumatic. Eyes: Pupils equal round and reactive to light, extra-ocular motions intact. Lids and lashes normal. Conjunctiva and sclera are non-icteric and not injected. Cornea within normal limits. Periorbital areas with no swelling, redness, or edema. ENT: Nares patent. No nasal discharge, no septal abnormalities noted. Tympanic membranes are normal and external auditory canals are clear. Oropharynx with no redness, swelling, or masses, exudates, or evidence of obstruction, uvula midline. Mucous membranes moist. Neck: Trachea midline, no thyromegaly or masses palpated, and no cervical lymphadenopathy. Supple, full range of motion without nuchal rigidity, or vertebral point tenderness. No Meningismus. Chest/axilla: Normal chest wall appearance and motion. Nontender with no deformity. No lesions are appreciated. Cardiovascular: Regular rate and rhythm with a normal S1 and S2. No gallops, murmurs, or rubs. Normal PMI, no JVD. No pulse deficits. Respiratory: Lungs have equal breath sounds bilaterally, clear to auscultation and percussion. No rales, rhonchi or wheezes noted. No increased work of breathing, no retractions or nasal flaring. Back: No spinal tenderness. No costovertebral tenderness. Full range of motion. Skin: Warm, dry with normal turgor. Normal color with no rashes, no lesions, and no evidence of cellulitis. MS/ Extremity: Pulses equal, no cyanosis. Neurovascular intact. Full, normal range of motion. Neuro: Awake and alert, GCS 15, oriented to person, place, time, and situation. Cranial nerves II-XII grossly intact. Motor strength 5/5 in all extremities. Sensory grossly intact. Cerebellar exam normal. Normal gait. Psych: Awake, alert, with orientation to person, place and time. Behavior, mood, and affect are within normal limits. 11:18 Abdomen/GI: Inspection: abdomen appears normal, Bowel sounds: normal, Palpation: mild abdominal tenderness, in all quadrants. Vital Signs: 09:39 BP 110 / 78; Pulse 104; Resp 16; Temp 97.6(O); Pulse Ox 99% on R/A; Weight 77.11 kg rb1 (R); Height 5 ft. 3 in. (160.02 cm) (R); Pain 8/10; 10:39 BP 99 / 75; Pulse 97; Resp 18; Pulse Ox 100% on R/A; dh3 11:39 BP 98 / 72; Pulse 95; Resp 17; Pulse Ox 99% on R/A; rb1 09:39 Body Mass Index 30.11 (77.11 kg, 160.02 cm) rb1 MDM: 09:39 Patient medically screened. ia 11:18 Data reviewed: vital signs, nurses notes, lab test result(s), radiologic studies, I nh have discussed the patient's presentation/case with the attending Emergency Department Physician; and as a result, I will discharge patient. Counseling: I had a detailed discussion with the patient and/or guardian regarding: the historical points, exam findings, and any diagnostic results supporting the discharge/admit diagnosis, lab results, radiology results, the need for outpatient follow up, to return to the emergency department if symptoms worsen or persist or if there are any questions or concerns that arise at home. 10/14 09:46 Order name: Basic Metabolic Panel; Complete Time: 10:28 ia 10/14 09:46 Order name: CBC with Diff; Complete Time: 10:28 ia 10/14 09:46 Order name: Creatinine for Radiology; Complete Time: 10:28 ia 10/14 09:46 Order name: Hepatic Function; Complete Time: 10:28 ia 10/14 09:46 Order name: Lipase; Complete Time: 10:28 ia 10/14 09:50 Order name: Urine Dipstick--Ancillary (enter results); Complete Time: 10:28 10/14 09:46 Order name: IV Saline Lock; Complete Time: 09:58 ia 10/14 09:46 Order name: Labs collected and sent; Complete Time: 09:58 ia 10/14 09:46 Order name: CT Abd/Pelvis - W/Contrast; Complete Time: 11:14 ia 10/14 09:50 Order name: Urine --Ancillary (enter results); Complete Time: 10:28 bd 10/14 10:16 Order name: CBC Smear Scan; Complete Time: 10:28 EDMS Administered Medications: 11:50 Drug: Zofran 4 mg Route: PO; rb1 11:50 Follow up: Response: Medication administered at discharge. rb1 Disposition: 13:57 Co-signature as Attending Physician, Dany Thorne MD. rn Disposition: 10/14/18 11:21 Discharged to Home. Impression: Vomiting. - Condition is Stable. - Discharge Instructions: Viral Gastroenteritis, Adult. - Prescriptions for Bentyl 20 mg Oral Tablet - take 1 tablet by ORAL route every 6 hours As needed; 20 tablet. Zofran 4 mg Oral Tablet - take 1 tablet by ORAL route every 6 hours As needed; 20 tablet. - Medication Reconciliation Form, Thank You Letter, Antibiotic Education, Prescription Opioid Use form. - Follow up: Private Physician; When: 2 - 3 days; Reason: Recheck today's complaints. - Problem is new. - Symptoms are unchanged. Signatures: Dispatcher [employer] EDMS Shadia Kaye, MUSEUM SPECIALIST MUSEUM SPECIALIST ia Dany Thorne MD MD rn Barber, Rebecca, RN RN rb1 Corrections: (The following items were deleted from the chart) 11:54 11:21 10/14/2018 11:21 Discharged to Home. Impression: Vomiting. Condition is Stable. rb1 Forms are Medication Reconciliation Form, Thank You Letter, Antibiotic Education, Prescription Opioid Use. Follow up: Private Physician; When: 2 - 3 days; Reason: Recheck today's complaints. Problem is new. Symptoms are unchanged. ia 12:02 11:54 10/14/2018 11:21 Discharged to Home. Impression: Vomiting. Condition is Stable. rb1 Discharge Instructions: Viral Gastroenteritis, Adult. Prescriptions for Bentyl 20 mg Oral Tablet - take 1 tablet by ORAL route every 6 hours As needed; 20 tablet, Zofran 4 mg Oral Tablet - take 1 tablet by ORAL route every 6 hours As needed; 20 tablet. and Forms are Medication Reconciliation Form, Thank You Letter, Antibiotic Education, Prescription Opioid Use. Follow up: Private Physician; When: 2 - 3 days; Reason: Recheck today's complaints. Problem is new. Symptoms are unchanged. rb1
[2018-10-14] MEDS ORDERED: ONDANSETRON 4 MG (ODT) TAB ONE (11:54)
[2018-10-14 12:01] VITALS: TEMP 97.6
[2018-10-14 12:21] VITALS: BP 98/72; O2SAT 99
== END 2018-10-14 12:02 | disposition home or self-care (01) ==
LOC: ER 09:32
DX: R11.10 Vomiting, unspecified (principal); F41.9 Anxiety disorder, unspecified
CPT/HCPCS: 36415; 74177; 80048; 80076; 81003; 81025; 83690; 85025; 99284; Q9967

== ENCOUNTER 2019-01-14 21:58 | Emergency (ER) | payer SELFPAY ==
[2019-01-14 23:11] LABS: Absolute Monocytes 0.7 K/uL (0.1-1.3); Absolute Neutrophil 6.9 K/uL (1.8-8.0); Basophils % 0.9 % (0-1.3); Lymphocytes % 27.5 % (15.3-44.8); MPV 8.4 fL (7.6-11.3); Monocytes % 6.1 % (3.3-12.3); RBC Red Blood Cell Count 4.15 M/uL (3.86-4.86)
[2019-01-14 23:12] LABS: Protime INR 1.02
[2019-01-14 23:25] LABS: ALT/SGPT 26 U/L (12-78); AST/SGOT 14 U/L (15-37); Albumin 4.3 g/dL (3.4-5.0); Alkaline Phosphatase 60 U/L (45-117); BUN Blood Urea Nitrogen 9 mg/dL (7-18); Bicarbonate 29 mmol/L (21-32); Bilirubin Direct 0.2 mg/dL (0-0.2); Bilirubin Total 0.5 mg/dL (0.2-1.0); Glucose Level 86 mg/dL (74-106); Magnesium 2.2 mg/dL (1.8-2.4); NT PRO-BNP 23 pg/mL (<125); Potassium 3.7 mmol/L (3.5-5.1); Protein, Total 7.8 g/dL (6.4-8.2); Sodium Level 143 mmol/L (136-145); Troponin (Emerg Dept Use Only) < 0.02 ng/mL (0.0-0.045)
[2019-01-14] MEDS ORDERED: DIPHENHYDRAMINE 50 MG/ML VIAL ONE (23:46)
[2019-01-14] MEDS ORDERED: METOCLOPRAMIDE 10 MG/2mL INJ ONE (23:46)
--- NOTE | 2019-01-15 00:31 | ER ---
Nurse's Notes [facility] Name: Nataliia Allen Age: 28 yrs Sex: Female : 1990 Arrival Date: 01/14/2019 Time: 22:03 Bed 8 Private MD: Diagnosis: Headache;Chest pain, unspecified Presentation: 01/14 22:13 Presenting complaint: Patient states: chest pain to center of chest this morning. ak1 blurred "cloudy vision" out of left eye. pt c/o throbbing headache. Transition of care: patient was not received from another setting of care. Onset of symptoms was January 14, 2019. Risk Assessment: Do you want to hurt yourself or someone else? Patient reports no desire to harm self or others. Care prior to arrival: None. 22:13 Method Of Arrival: Ambulatory ak1 22:13 Acuity: GITA 3 ak1 22:19 Initial Sepsis Screen: Does the patient meet any 2 criteria? No. Patient's initial lp1 sepsis screen is negative. Does the patient have a suspected source of infection? No. Patient's initial sepsis screen is negative. 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 - Social history:: Smoking status: Patient/guardian denies using tobacco. - Ebola Screening: : No symptoms or risks identified at this time. Screenin:18 Abuse screen: Denies threats or abuse. Denies injuries from another. Nutritional lp1 screening: No deficits noted. Tuberculosis screening: No symptoms or risk factors identified. Fall Risk None identified. Assessment: 22:15 General: Appears in no apparent distress. Behavior is appropriate for age. Pain: lp1 Complains of pain in chest, head Pain does not radiate. Pain currently is 8 out of 10 on a pain scale. Quality of pain is described as aching, Pain began gradually. Neuro: Level of Consciousness is awake, alert, obeys commands, Oriented to person, place, time, situation, Moves all extremities. Full function Gait is steady, Speech is normal, Facial symmetry appears normal, Pupils are PERRLA, Intact Reports blurred vision in left eye headache in entire photophobia. Cardiovascular: Patient's skin is warm and dry. Respiratory: Reports pain with respiration Respiratory effort is even, unlabored, Breath sounds are clear bilaterally. GI: No signs and/or symptoms were reported involving the gastrointestinal system. : No signs and/or symptoms were reported regarding the genitourinary system. EENT: No signs and/or symptoms were reported regarding the EENT system. Derm: Skin is pink, warm \\T\\ dry. Musculoskeletal: Circulation, motion, and sensation intact. 01/15 00:15 Reassessment: Patient appears in no apparent distress at this time. Patient is alert, lp1 oriented x 3, equal unlabored respirations, skin warm/dry/pink. Patient states feeling better. Patient states symptoms have improved. Vital Signs: 01/14 22:11 Temp 98.3(O); oe 22:14 BP 108 / 90; Pulse 65; Resp 18; Pulse Ox 100% on R/A; Weight 80.74 kg (R); Height 5 ft. ak1 3 in. (160.02 cm) (R); Pain 7/10; 23:17 BP 120 / 96; Pulse 74; Resp 18; Pulse Ox 99% on R/A; lp1 01/15 00:00 BP 122 / 75; Pulse 66; Resp 18; Pulse Ox 99% on R/A; lp1 01/14 22:14 Body Mass Index 31.53 (80.74 kg, 160.02 cm) ak1 ED Course: 01/14 22:03 Patient arrived in ED. ds1 22:13 Stephen Grimaldo PA is PHCP. jmm 22:13 Darvin Henriquez MD is Attending Physician. jmm 22:14 Triage completed. ak1 22:14 Arm band placed on Patient placed in an exam room, on a stretcher, Patient notified of ak1 wait time. 22:15 Mitzy Wheatley, DHARMESH is Primary Nurse. lp1 22:18 Patient maintains SpO2 saturation greater than 95% on room air. lp1 22:19 Patient has correct armband on for positive identification. Placed in gown. Pulse ox lp1 on. NIBP on. 22:[address] via wheelchair. vm2 22:40 CT Head Brain wo Cont In Process Unspecified. EDMS 22:43 X-ray completed. Portable x-ray completed in exam room. Patient tolerated procedure az well. 22:44 XRAY Chest (1 view) In Process Unspecified. EDMS 23:03 Inserted saline lock: 20 gauge in right antecubital area, using aseptic technique. oe Blood collected. 23:17 No provider procedures requiring assistance completed. lp1 01/15 00:31 Juan Manuel Ivey MD is Referral Physician. [facility] 00:31 Nitesh Bro MD is Referral Physician. [facility] 00:37 IV discontinued, No redness/swelling at site. Pressure dressing applied. lp1 Administered Medications: 01/14 23:42 Drug: Reglan 10 mg Route: IVP; Site: right antecubital; 1 01/15 00:31 Follow up: Response: Marked relief of symptoms 1 01/14 23:42 Drug: diphenhydrAMINE 12.5 mg Route: IVP; Site: right antecubital; 1 01/15 00:31 Follow up: Response: Marked relief of symptoms [facility] Outcome: 00:31 Discharge ordered by . [facility] 00:37 Discharged to home ambulatory. lp1 00:37 Condition: good 00:37 Discharge instructions given to patient, Instructed on discharge instructions, follow up and referral plans. Demonstrated understanding of instructions, follow-up care. 00:37 Patient left the ED. 1 Signatures: Dispatcher [employer] EDMS Stephen Grimaldo PA PA jmm Sanford, Demi 1 Mitzy Wheatley RN RN lp1 Pat José RN RN ak1 Jeovany Villeda Victoria 2 Magalie Zhang
--- NOTE | 2019-01-15 00:31 | EDPHYS ---
Physician Documentation [facility] Name: Nataliia Allen Age: 28 yrs Sex: Female : 1990 Arrival Date: 01/14/2019 Time: 22:03 Bed 8 Private MD: ED Physician Darvin Henriquez HPI: 01/14 22:54 This 28 yrs old Female presents to ER via Ambulatory with complaints of Chest jmm Pain, Headache, Blurred Vision. 22:54 The patient complains of pain to the top of head, forehead, right mormon and left jmm mormon. The patient describes the headache as aching. Onset: The symptoms/episode began/occurred gradually. This is a 28 year old female with a history of anxiety that presents to the ED with complaints of headache which began at approx 0730 pm. Patient states she does have a history of headaches. Patient complaints of left eye blurriness. Patient also complaints of sub sternal chest pain which began this morning which has been constant. Denies history of cad, htn. . 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 - Social history:: Smoking status: Patient/guardian denies using tobacco. - Ebola Screening: : No symptoms or risks identified at this time. ROS: 22:54 Constitutional: Negative for fever, chills, and weight loss. jmm 22:54 Eyes: Positive for blurry vision. 22:54 Cardiovascular: Positive for chest pain. 22:54 Neuro: Positive for headache, visual changes. 22:54 All other systems are negative. Exam: 22:54 Constitutional: This is a well developed, well nourished patient who is awake, alert, jmm and in no acute distress. Head/Face: atraumatic. Eyes: EOMI, no conjunctival erythema appreciated ENT: Moist Mucus Membranes Neck: Trachea midline, Supple Chest/axilla: Normal chest wall appearance and motion. 22:54 Respiratory: Normal respirations, no respiratory distress appreciated Abdomen/GI: Non distended, soft Back: Normal ROM Skin: General appearance color normal MS/ Extremity: Moves all extremities, no obvious deformities appreciated, no edema noted to the lower extremities 22:54 Cardiovascular: Rate: normal, Rhythm: 22:54 Neuro: Orientation: is normal, Mentation: is normal, Memory: is normal. 22:54 Psych: Behavior/mood is pleasant, cooperative. Vital Signs: 22:11 Temp 98.3(O); oe 22:14 BP 108 / 90; Pulse 65; Resp 18; Pulse Ox 100% on R/A; Weight 80.74 kg (R); Height 5 ft. ak1 3 in. (160.02 cm) (R); Pain 7/10; 23:17 BP 120 / 96; Pulse 74; Resp 18; Pulse Ox 99% on R/A; lp1 01/15 00:00 BP 122 / 75; Pulse 66; Resp 18; Pulse Ox 99% on R/A; lp1 01/14 22:14 Body Mass Index 31.53 (80.74 kg, 160.02 cm) ak1 MDM: 01/14 22:24 Patient medically screened. [facility] 01/15 00:27 Data reviewed: vital signs, nurses notes. Counseling: I had a detailed discussion with [facility] the patient and/or guardian regarding: the historical points, exam findings, and any diagnostic results supporting the discharge/admit diagnosis, radiology results, the need for outpatient follow up, to return to the emergency department if symptoms worsen or persist or if there are any questions or concerns that arise at home. ED course: Symptoms relieved in the ED. No field deficit appreciate on PE. Low risk for acs. PERC negative Patient advised to follow up with neurology for further evaluation. patient given return precautions. patient understood and agree. . 01/14 22:25 Order name: Basic Metabolic Panel; Complete Time: 23:31 [facility] 01/14 22:25 Order name: CBC with Diff; Complete Time: 23:18 [facility] 01/14 22:25 Order name: LFT's; Complete Time: 23:31 [facility] 01/14 22:25 Order name: Magnesium; Complete Time: 23:31 [facility] 01/14 22:25 Order name: NT PRO-BNP; Complete Time: 23:31 [facility] 01/14 22:25 Order name: PT-INR; Complete Time: 23:18 [facility] 01/14 22:25 Order name: Troponin (emerg Dept Use Only); Complete Time: 23:31 [facility] 01/14 22:25 Order name: XRAY Chest (1 view) [facility] 01/14 22:25 Order name: EKG; Complete Time: 22:26 [facility] 01/14 22:25 Order name: Cardiac monitoring; Complete Time: 23:16 [facility] 01/14 22:25 Order name: CT Head Brain wo Cont [facility] 01/14 22:25 Order name: Test, Serum; Complete Time: 23:49 [facility] 01/14 22:25 Order name: EKG - Nurse/Tech; Complete Time: 23:16 [facility] 01/14 22:25 Order name: IV Saline Lock; Complete Time: 23:16 [facility] 01/14 22:25 Order name: Labs collected and sent; Complete Time: 23:16 [facility] 01/14 22:25 Order name: O2 Per Protocol; Complete Time: 22:33 [facility] 01/14 22:25 Order name: O2 Sat Monitoring; Complete Time: 22:33 [facility] Administered Medications: 01/14 23:42 Drug: Reglan 10 mg Route: IVP; Site: right antecubital; 1 01/15 00:31 Follow up: Response: Marked relief of symptoms 1 01/14 23:42 Drug: diphenhydrAMINE 12.5 mg Route: IVP; Site: right antecubital; 1 01/15 00:31 Follow up: Response: Marked relief of symptoms 1 Disposition: 01/15/19 00:31 Discharged to Home. Impression: Headache, Chest pain, unspecified. - Condition is Stable. - Discharge Instructions: Nonspecific Chest Pain, Migraine Headache. - Medication Reconciliation Form, Thank You Letter, Antibiotic Education, Prescription Opioid Use, Work release form form. - Follow up: Private Physician; When: 2 - 3 days; Reason: Recheck today's complaints, Continuance of care, Re-evaluation by your physician. Follow up: Juan Manuel Ivey MD; When: 2 - 3 days; Reason: Recheck today's complaints, Continuance of care, Re-evaluation by your physician. Follow up: Nitesh Bro MD; When: 2 - 3 days; Reason: Recheck today's complaints, Continuance of care, Re-evaluation by your physician. Addendum: 01/16/2019 07:20 Co-signature as Attending Physician, Darvin Henriquez MD I agree with the assessment and t w4 plan of care. Signatures: Dispatcher [employer] EDMS Stephen Grimaldo PA PA [facility] Mitzy Wheatley, RN RN lp1 Pat José RN RN ak1 Darvin Henriquez MD MD tw4 Corrections: (The following items were deleted from the chart) 01/15 00:31 00:31 01/15/2019 00:31 Discharged to Home. Impression: Headache; Chest pain, jmm unspecified. Condition is Stable. Forms are Medication Reconciliation Form, Thank You Letter, Antibiotic Education, Prescription Opioid Use. Follow up: Private Physician; When: 2 - 3 days; Reason: Recheck today's complaints, Continuance of care, Re-evaluation by your physician. [facility] 00:37 00:31 01/15/2019 00:31 Discharged to Home. Impression: Headache; Chest pain, lp1 unspecified. Condition is Stable. Discharge Instructions: Nonspecific Chest Pain, Migraine Headache. Forms are Medication Reconciliation Form, Thank You Letter, Antibiotic Education, Prescription Opioid Use. Follow up: Private Physician; When: 2 - 3 days; Reason: Recheck today's complaints, Continuance of care, Re-evaluation by your physician. Follow up: Juan Manuel Ivey; When: 2 - 3 days; Reason: Recheck today's complaints, Continuance of care, Re-evaluation by your physician. Follow up: Nitesh Bro; When: 2 - 3 days; Reason: Recheck today's complaints, Continuance of care, Re-evaluation by your physician. [facility] 03:01 00:27 ED course: Symptoms relieved in the ED. Low risk for acs. Patient advised to [facility] follow up with neurology for further evaluation. patient given return precautions. patient understood and agree. . [facility]
[2019-01-15 01:38] VITALS: TEMP 98.3
[2019-01-15 01:41] VITALS: O2SAT 99
[2019-01-15 01:43] VITALS: BP 122/75
--- NOTE | 2019-01-15 08:30 | RAD REPORT ---
EXAM DESCRIPTION: Jodi Single View01/14/2019 10:43 pm CLINICAL HISTORY: Chest pain COMPARISON: October 2017 FINDINGS: Mild left basilar opacity. Right lung appears clear. The heart is normal size IMPRESSION: Mild left basilar opacity probably is chronic. If the patient continues have symptoms t o suggest an acute process PA and lateral chest series would be recommended
--- NOTE | 2019-01-15 11:32 | RAD REPORT ---
EXAM DESCRIPTION: CT - Head Brain Wo Cont - 01/14/2019 10:49 pm CLINICAL HISTORY: 28 years Female headache, visual changes COMPARISON: None TECHNIQUE: Contiguous axial images of the brain were obtained without the administration of intraven ous contrast.This exam was performed according to our departmental dose-optimization program which in cludes use of Automated Exposure Control, adjustment of the mA and/or kV according to patient size an d/or use of iterative reconstruction technique. FINDINGS: Brain: No acute intracranial hemorrhage. No acute territorial infarct. No extra-axial emely ection. No mass effect or herniation. Ventricles: Within normal limits in size. Globes and orbits: No acute abnormality. Bones: No acute osseous finding. Paranasal sinuses: Paranasal sinuses are clear.. Mastoid air cells: Well pneumatized.. Soft tissues: Within normal limits [employer] Veneer Taper view shows no additional significant finding IMPRESSION: No acute intracranial abnormality. Electronically signed by: Aakash Rizo DO 01/14/2019 10:44 PM CDT Due to temporary technical issues with the PACS/Fluency reporting system, reports are being signed by the in house radiologist as a courtesy to ensure prompt reporting. The interpreting radiologist is f ully responsible for the content of the report.
== END 2019-01-15 00:37 | disposition home or self-care (01) ==
LOC: ER 21:58
DX: R07.9 Chest pain, unspecified (principal); F41.9 Anxiety disorder, unspecified
CPT/HCPCS: 36415; 70450; 71045; 80048; 80076; 83735; 83880; 84484; 84703; 85025; 85610; 93005; 96374; 96375; 99285; J2765

== ENCOUNTER 2019-07-11 07:52 | Emergency (ER) | payer SELFPAY ==
[2019-07-11] MEDS ORDERED: METHYLPREDNISOLONE 125 MG INJ ONE (09:02)
[2019-07-11] MEDS ORDERED: NA CHLORIDE 0.9% 1,000 ML ONE (09:02)
[2019-07-11] MEDS ORDERED: CEFTRIAXONE/SWI 1gm 1 GM/10 ML SYR ONE (09:10)
[2019-07-11] MEDS ORDERED: HYDROCODONE/APAP 5/325 MG TAB ONE (09:13)
--- NOTE | 2019-07-11 09:38 | ER ---
Nurse's Notes [facility] Name: Nataliia Allen Age: 28 yrs Sex: Female : 1990 Arrival Date: 07/11/2019 Time: 07:54 Bed 19 Private MD: Roel Toth T Diagnosis: Streptococcal pharyngitis;Acute tonsillitis Presentation: 07/11 08:08 Presenting complaint: Patient states: Headache, sore throat, body aches, productive ph cough and fever x 3 days, denies N/V. Transition of care: patient was not received from another setting of care. Onset of symptoms was July 11, 2019. Risk Assessment: Do you want to hurt yourself or someone else? Patient reports no desire to harm self or others. Initial Sepsis Screen: Does the patient meet any 2 criteria? No. Patient's initial sepsis screen is negative. Does the patient have a suspected source of infection? No. Patient's initial sepsis screen is negative. Care prior to arrival: None. 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 - Social history:: The patient lives at home. - Ebola Screening: : No symptoms or risks identified at this time. Screenin:30 Abuse screen: Denies threats or abuse. Nutritional screening: No deficits noted. ph Tuberculosis screening: No symptoms or risk factors identified. Fall Risk None identified. Assessment: 08:30 General: Appears in no apparent distress. Behavior is calm, cooperative, Reports fever ph for 2-3 days, Denies. Pain: Complains of pain in C/O pain in throat, and headache. 08:30 Neuro: No deficits noted. Level of Consciousness is awake, alert, obeys commands, ph Oriented to person, place, time, situation. Cardiovascular: Capillary refill < 3 seconds Patient's skin is warm and dry. Respiratory: Breath sounds are coarse bilaterally. in right upper lobe and left upper lobe. EENT: Oral mucosa is moist. Throat is reddened bilaterally. Derm: No deficits noted. Skin is intact, is healthy with good turgor. Vital Signs: 08:12 BP 123 / 79; Pulse 94; Resp 20; Temp 98.4; Pulse Ox 98% on R/A; Weight 81.65 kg; Height ph 5 ft. 3 in. (160.02 cm); 08:12 Body Mass Index 31.89 (81.65 kg, 160.02 cm) ph ED Course: 07:54 Patient arrived in ED. as 07:54 Roel Toth MD is Private Physician. as 08:08 Lennie Etienne, DHARMESH is Primary Nurse. ph 08:12 Triage completed. ph 08:18 Fabian Fuller MD is Attending Physician. gs 08:18 Arm band placed on Patient placed in an exam room, on a stretcher, on pulse oximetry. ph 08:30 Patient has correct armband on for positive identification. Bed in low position. Call ph light in reach. Side rails up X 1. 08:57 Inserted saline lock: 22 gauge in right antecubital area, using aseptic technique. ph 10:20 No provider procedures requiring assistance completed. IV discontinued, intact, ph bleeding controlled, No redness/swelling at site. Pressure dressing applied. Administered Medications: 09:13 Drug: NS 0.9% 1000 ml Route: IV; Rate: 1 bolus; Site: right antecubital; ph 10:15 Follow up: Response: No adverse reaction; IV Status: Completed infusion; IV Intake: ph 200ml 09:13 Drug: SOLU-Medrol 80 mg Route: IVP; Site: right antecubital; ph 10:15 Follow up: Response: No adverse reaction ph 09:14 Drug: Rocephin - (cefTRIAXone) 1 grams Route: IVPB; Infused Over: 30 mins; Site: right ph antecubital; 10:15 Follow up: Response: No adverse reaction; IV Status: Completed infusion ph 09:14 Drug: [place] 5 mg-325 mg 1 tabs {Note: RASS 0.} Route: PO; ph 10:14 Follow up: Response: No adverse reaction ph Intake: 10:15 IV: 200ml; Total: 200ml. ph Outcome: 09:37 Discharge ordered by . gs 10:24 Patient left the ED. ph 11:26 Discharged to home ambulatory, with significant other. ph 11: Condition: good 11: Discharge instructions given to patient, Instructed on discharge instructions, follow up and referral plans. medication usage, Demonstrated understanding of instructions, medications, Prescriptions given X 2. Signatures: Lesly Marinelli Patricia RN RN ph Fuller, MD DONELL Peralta Corrections: (The following items were deleted from the chart) 11: 08:30 Neuro: ph ph 11: 11: Neuro: No deficits noted. Level of Consciousness is awake, alert, obeys commands, ph Oriented to person, place, time, situation, ph : 11:04 Cardiovascular: Capillary refill < 3 seconds Patient's skin is warm and dry. ph ph : 11:04 Respiratory: ph ph : 11: EENT: Oral mucosa is moist. Throat is reddened bilaterally ph ph 11: 11:04 Respiratory: Breath sounds are coarse bilaterally. in right upper lobe and left ph upper lobe ph : 11:04 Derm: No deficits noted. Skin is intact, is healthy with good turgor, ph ph
--- NOTE | 2019-07-11 09:39 | EDPHYS ---
Physician Documentation [facility] Name: Nataliia Allen Age: 28 yrs Sex: Female : 1990 Arrival Date: 07/11/2019 Time: 07:54 Bed 19 Private MD: Roel Toth T ED Physician Fabian Fuller HPI: 07/11 09:13 This 28 yrs old Female presents to ER via Ambulatory with complaints of Sore gs Throat, Headache. 09:13 The patient presents with sore throat. The patient describes throat pain as burning. gs Onset: The symptoms/episode began/occurred 2 day(s) ago, and became persistent. Severity of symptoms: At their worst the symptoms were severe, in the emergency department the symptoms are unchanged. Modifying factors: the symptoms are aggravated by swallowing. Associated signs and symptoms: Pertinent positives: cough, fever, flu-like symptoms. The patient has not experienced similar symptoms in the past. The patient has not recently seen a physician. CRANBERRY GROWER: 08:12 LMP 07/11/2019 ph Historical: - Allergies: 08:18 No Known Drug Allergies; ph - Home Meds: 08:18 Xanax Oral [Active]; ph - PMHx: 08:18 Anxiety; ph - PSHx: 08:18 Tubal ligation; ph - Immunization history:: Adult Immunizations unknown. - Social history:: The patient lives at home. - Ebola Screening: : No symptoms or risks identified at this time. ROS: 09:13 All other systems are negative. gs Exam: 09:13 Head/Face: Normocephalic, atraumatic. Eyes: Pupils equal round and reactive to light, gs extra-ocular motions intact. Lids and lashes normal. Conjunctiva and sclera are non-icteric and not injected. Cornea within normal limits. Periorbital areas with no swelling, redness, or edema. 09:13 Chest/axilla: Normal chest wall appearance and motion. Nontender with no deformity. No lesions are appreciated. Cardiovascular: Regular rate and rhythm with a normal S1 and S2. No gallops, murmurs, or rubs. Normal PMI, no JVD. No pulse deficits. Respiratory: Lungs have equal breath sounds bilaterally, clear to auscultation and percussion. No rales, rhonchi or wheezes noted. No increased work of breathing, no retractions or nasal flaring. Abdomen/GI: Soft, non-tender, with normal bowel sounds. No distension or tympany. No guarding or rebound. No evidence of tenderness throughout. Back: No spinal tenderness. No costovertebral tenderness. Full range of motion. Skin: Warm, dry with normal turgor. Normal color with no rashes, no lesions, and no evidence of cellulitis. MS/ Extremity: Pulses equal, no cyanosis. Neurovascular intact. Full, normal range of motion. Neuro: Awake and alert, GCS 15, oriented to person, place, time, and situation. Cranial nerves II-XII grossly intact. Motor strength 5/5 in all extremities. Sensory grossly intact. Cerebellar exam normal. Normal gait. 09:13 Constitutional: The patient appears alert, awake. 09:13 Constitutional: The patient appears uncomfortable. 09:13 ENT: TM's: dullness, on the left, erythema, is not appreciated, Posterior pharynx: Tonsils: bilaterally enlarged, with erythema, with exudate. 09:13 Neck: External neck: swelling, is not appreciated, Lymph nodes: lymphadenopathy is appreciated, anterior cervical nodes, MILD. Vital Signs: 08:12 BP 123 / 79; Pulse 94; Resp 20; Temp 98.4; Pulse Ox 98% on R/A; Weight 81.65 kg; Height ph 5 ft. 3 in. (160.02 cm); 08:12 Body Mass Index 31.89 (81.65 kg, 160.02 cm) ph MDM: 08:32 Patient medically screened. 09:13 Differential diagnosis: group A strep tonsillitis, influenza, pharyngitis. Data gs reviewed: vital signs, nurses notes, lab test result(s). Response to treatment: the patient's symptoms have markedly improved after treatment, and as a result, I will discharge patient. 07/11 08:17 Order name: Flu; Complete Time: 09:11 ph 07/11 08:17 Order name: Strep; Complete Time: 09:03 ph 07/11 08:45 Order name: IV Saline Lock; Complete Time: 09:00 gs Administered Medications: 09:13 Drug: NS 0.9% 1000 ml Route: IV; Rate: 1 bolus; Site: right antecubital; ph 10:15 Follow up: Response: No adverse reaction; IV Status: Completed infusion; IV Intake: ph 200ml 09:13 Drug: SOLU-Medrol 80 mg Route: IVP; Site: right antecubital; ph 10:15 Follow up: Response: No adverse reaction ph 09:14 Drug: Rocephin - (cefTRIAXone) 1 grams Route: IVPB; Infused Over: 30 mins; Site: right ph antecubital; 10:15 Follow up: Response: No adverse reaction; IV Status: Completed infusion ph 09:14 Drug: Phoenix 5 mg-325 mg 1 tabs {Note: RASS 0.} Route: PO; ph 10:14 Follow up: Response: No adverse reaction ph Disposition: 07/11/19 09:37 Discharged to Home. Impression: Streptococcal pharyngitis, Acute tonsillitis. - Condition is Stable. - Discharge Instructions: Strep Throat, Tonsillitis. - Prescriptions for Amoxicillin 875 mg Oral Tablet - take 1 tablet by ORAL route every 12 hours for 10 days; 20 tablet. Tylenol- Codeine #4 300-60 mg Oral Tablet - take 1 tablet by ORAL route every 6 hours As needed; 6 tablet. - Medication Reconciliation Form, Thank You Letter, Antibiotic Education, Prescription Opioid Use form. - Follow up: Private Physician; When: 2 - 3 days; Reason: Re-evaluation by your physician. Signatures: Dispatcher [employer] Lennie Durand RN RN FullerFabian MD MD Corrections: (The following items were deleted from the chart) 10:24 09:37 07/11/2019 09:37 Discharged to Home. Impression: Streptococcal pharyngitis; Acute ph tonsillitis. Condition is Stable. Forms are Medication Reconciliation Form, Thank You Letter, Antibiotic Education, Prescription Opioid Use. Follow up: Private Physician; When: 2 - 3 days; Reason: Re-evaluation by your physician. gs
[2019-07-11 10:42] VITALS: BP 123/79; TEMP 98.4; O2SAT 98
== END 2019-07-11 10:24 | disposition home or self-care (01) ==
LOC: ER 07:52
DX: J02.0 Streptococcal pharyngitis (principal); J03.90 Acute tonsillitis, unspecified; F41.9 Anxiety disorder, unspecified
CPT/HCPCS: 87081; 87804; 96365; 96375; 99284; J0696; J2930; J7030

== ENCOUNTER 2022-09-05 11:49 | Emergency (ER) | payer SELFPAY ==
--- OUTSIDE RECORDS SUMMARY | 2022-09-05 12:06 | XMS REPORT | Continuity of Care Document ---
:[address] [facility] t Address [address] [place] [address] Care Team Providers Name Role Phone VICKIE BARRERA Primary Care Physician Unavailable VICKIE BARRERA Attending Clinician Unavailable ABDOUL VAZ Attending Clinician Unavailable Vickie Barrera MD Attending Clinician Doctor Unassigned, [place] Attending Clinician Unavailable Sneha Bedoya Attending Clinician CARMEN HARDEN Attending Clinician Unavailable Res[facility]Colpo[facility], [facility] Attending Clinician Unavailable Carmen Harden MD Attending Clinician Breanna Ortiz Attending Clinician [phone] BREANNA GROVER Attending Clinician Unavailable CONCEPCION DE LA CRUZ Attending Clinician Unavailable Emani Guerrier Attending Clinician Lab, Adc Fam Pob I Attending Clinician Unavailable Faby Leahy Attending Clinician Payers Payer Name Policy Type Policy Number Effective Date Expiration Date Dodie xiao [facility] [id number] 2017 00:00:00 Problems Condition Condition Condition Status Onset Resolution Last Treating Co mments Source Name Details Category Date Date Treatment Clinician Date Other Other Disease Active Univers general general 8-18 ity of counseling [place] advice and advice 00 N[place] dical for for Branch contracept contracept felicitas felicitas management management Obesity Obesity Disease Active Univers (BMI (BMI 8-18 ity of 30-39.9) 30-39.9) 00:00: [place] 00 Medical Branch History of History of Disease Active U nivers tubal tubal 8-18 ity of ligation ligation 00:00: [place] 00 [facility] Allergies, Adverse Reactions, Alerts Allergy Allergy Status Severity Reaction(s) Onset Inactive Treating Comm ents Source Name Type Date Date Clinician NO KNOWN Drug Active Univers ALLERGIE Class ity of [facility] Social History Social Habit Start Date Stop Date Quantity Comments Source Exposure to Yes [facility] SARS-CoV-2 (event) Medica l [place] Alcohol intake 2021-06-02 2021-06-02 .14 /d [facility] 00:00:00 00:00:00 [facility] Tobacco use and 2021-03-26 2021-03-26 Never used [facility] exposure 00:00:00 00:00:00 [facility] Sex Ass[birth year] [facility] 00:00:00 00:00:00 [facility] Smoking Status Start Date Stop Date Source Never smoker [facility] Medications Ordered Filled Start Stop Current Ordering Indication Dosage Frequency Signature Comments Components Source Medication Medication Date Date Medication? Clinician (SIG) Name Name ESCITALOPRA Yes [id number] 5mg TAKE 1 Univers M OXALATE 5 6-09 TABLET BY ity of mg tablet 00:00: MOUTH [place] 00 DAILY Medical Branch MONTELUKAST Yes TAKE 1 Univ ers 10 mg 6-09 TABLET BY ity of tablet 00:00: MOUTH 00 DAILY IN Medical MORNING Branch diazePAM 5 Yes [id number] 5mg Take 1 U nivers mg tablet 1-28 tablet by ity o f 00:00: mouth 2 [place] (two) Medical times Branch daily as needed for Agitation or Anxiety. diazePAM 5 Yes [id number] 5mg Take 1 U nivers mg tablet 1-28 tablet by ity o f 00:00: mouth 2 [place] (two) Medical times [place] daily as needed for Agitation or Anxiety. diazePAM 5 2020-10- No [id number] 5mg Take 1 Univers mg tablet 0-15 -28 tablet by ity of 00:00: 00:00 mouth 2 00 :00 (two) [facility] daily as needed for Agitation or Anxiety. escitalopra Yes [id number] 5mg Take 1 Univers m oxalate 5 6-11 tablet by ity of mg tablet 00:00: mouth [place] 00 daily. Medical Branch escitalopra 2021- No [id number] 5mg Take 1 Univers m oxalate 5 6-11 06- tablet by it y of mg tablet 00:00: 00:00 mouth [place] 00 :00 daily. Medical Branch montelukast Yes Univer s 10 mg 10-24 ity of tablet 00:00: [place] 00 [facility] montelukast 2021- No Unive rs 10 mg 10-24 ity of tablet 00:00: 00:00 [place] 00 :00 [facility] Immunizations Ordered Filled Immunization Date Status Comments [facility] e Immunization Name Name SARS-COV-2 COVID-19 2021-01-26 Completed Unive rsity of PFIZER VACCINE 00:00:00 [facility] SARS-COV-2 COVID-19 2021-01-26 Completed Unive rsity of PFIZER VACCINE 00:00:00 [facility] SARS-COV-2 COVID-19 2021-01-05 Completed Unive rsity of PFIZER VACCINE 00:00:00 [facility] SARS-COV-2 COVID-19 2021-01-05 Completed Unive rsity of PFIZER VACCINE 00:00:00 [facility] Vital Signs Vital Name Observation Time Observation Value Comments Source Systolic blood 2021-11-12 15:09:00 113 mm[Hg] Univer sity of [facility] Diastolic blood 2021-11-12 15:09:00 79 mm[Hg] Unive rsity of [facility] Heart rate 2021-11-12 15:09:00 83 /min [facility] Body height 2021-11-12 15:09:00 160 cm [facility] Body weight 2021-11-12 15:09:00 90.719 kg [facility] BMI 2021-11-12 15:09:00 35.43 kg/m2 [facility] Procedures This patient has no known procedures. Encounters Start End Encounter Admission Attending Care Care Encounter Source Date/Time Date/Time Type Type Clinicians Facility Department ID 2022-09-05 2022-09-05 Outpatient R HOLLY [facility] [id number] Univers 16:30:00 16:30:00 VICKIE bill [facility] 2022-06-01 2022-06-01 Outpatient Luz Marina VAZ [facility] [id number] Univers 09:00:00 09:00:00 ABDOUL león o f [facility] 2022-03-24 2022-03-24 [facility] [id number] Univers 00:00:00 00:00:00 [facility] [id number] it y of [place] [id number] Isaac as VALENTIN?BLEA [phone] [address] MEDICAL OFFICE [facility] 2021-11-12 2021-11-12 [facility] [id number] Univers 09:15:00 09:23:27 Visit [facility] [id number] it y of [place] [id number] Isaac as VALENTIN?BLEA [phone] [address] MEDICAL OFFICE [facility] 2021-11-12 2021-11-12 Outpatient Luz Marina BARRERA [facility] [id number] Univers 09:15:00 09:15:00 VICKIE mau [facility] 2021-11-09 2021-11-09 Outpatient Luz Marina BARRERA [facility] [id number] Univers 13:00:00 13:00:00 VICKIE tristinbill [facility] 2021-11-04 2021-11-04 Outpatient R HOLLY [facility] [id number] Univers 09:45:00 09:45:00 VICKIE [facility] 2021-11-03 2021-11-03 [facility] .[id number] Univers 00:00:00 00:00:00 [facility] [id number] it y of [place] [id number] Isaac as VALENTIN?BLEA [phone] [address] MEDICAL OFFICE BUILDING 2021-10-27 2021-10-27 Outpatient Luz Marina JACINTAALFREDODARIELA [facility] [id number] Univers 13:00:00 13:00:00 VICKIE [facility] 2021-10-27 2021-10-27 Orders Doctor ANITHA [id number] Univers 00:00:00 00:00:00 Only Unassigned, MEAGHAN [id number] ity of [place] [facility] [id number] Isaac as [phone] [place] [address] Branch 2021-10-22 2021-10-22 Outpatient Luz Marina FARIASDARIELA [facility] [id number] Univers 08:45:00 08:45:00 VICKIE [facility] 2021-10-13 2021-10-13 Case Howie, UNIVERSIT [id number] Univers 00:00:00 00:00:00 Management [facility] [id number] ity of [facility] [id number] [place] [phone] [address] 2021-09-23 2021-09-23 Outpatient Luz Marina HARDEN [facility] [id number] Univers 09:00:00 09:49:22 [facility] 2021-09-23 2021-09-23 Office Res-Colpo/Leep, [facility] UNIVERSI [id number] Univers 08:52:14 09:49:22 Visit Carmen Harden [facility] [id number] ity of [facility] [id number] [place] [id number] [address] 2021-09-23 2021-09-23 Outpatient Luz Marina HARDEN [facility] [id number] Univers 09:00:00 09:00:00 [facility] 2021-09-23 2021-09-23 Outpatient Luz Marina HARDEN [facility] [id number] Univers 08:30:00 08:30:00 [facility] 2021-09-23 2021-09-23 Outpatient R ALEXA [facility] [id number] Univers 08:30:00 08:30:00 CARMEN [facility] 2021-09-23 2021-09-23 Orders Doctor ANITHA [id number] Univers 00:00:00 00:00:00 Only Unassigned, MEAGHAN [id number] ity of [place] [facility] [id number] Isaac as [phone] [address] 2021-07-30 2021-07-30 Office [facility] 1.2.840.114 [id number] Univers 09:46:50 10:01:50 Visit [facility] [id number] it y of [place] [id number] Isaac as Valentin?Blea [phone] Nv onelia gatica [address] [place] [address] Office Building 2021-07-30 2021-07-30 [facility] [id number] Univers 10:00:00 10:00:00 [facility] 2021-07-21 2021-07-21 [facility] [id number] Univers 10:15:00 10:15:00 [facility] 2021-07-14 2021-07-14 [facility] 1.2.840.114 [id number] Univers 00:00:00 00:00:00 [facility] [id number] it y of [place] [id number] Isaac as Professio [phone] Nv onelia pang [address] [place] [address] Office Building One 2021-07-06 2021-07-06 Telephone [facility] [id number] Univers 00:00:00 00:00:00 Breanna Augustin FUSING MACHINE FEEDER [id number] ity of [facility] [id number] Isaac as MATERNAL [phone] Med ical & CHILD [address] [place] [address] 2021-06-22 2021-06-22 Telephone [facility] 1.2.840.114 [id number] Univers 00:00:00 00:00:00 Breanna C FUSING MACHINE FEEDER [id number] ity of REGIONAL 4.2.7.2.686 Isaac as MATERNAL [phone] [facility] & [address] 2021-06-22 2021-06-22 Telephone [facility] 1.2.840.114 [id number] Univers 00:00:00 00:00:00 Breanna C FUSING MACHINE FEEDER [id number] ity of REGIONAL [id number] Isaac as MATERNAL [phone] [address] 2021-06-22 2021-06-22 Telephone [facility] 1.2.840.114 [id number] [facility] 00:00:00 00:00:00 Breanna C FUSING MACHINE FEEDER [id number] ity of [facility] [id number] Isaac as MATERNAL [id number] [address] 2021-06-02 2021-06-02 [facility] [id number] [facility] 09:36:52 10:53:26 Visit Breanna C FUSING MACHINE FEEDER [id number] ity of REGIONAL [id number] Isaac as MATERNAL [phone] [address] 2021-06-02 2021-06-02 Outpatient R REILLY [facility] [id number] Univers 09:30:00 09:30:00 BREANNA ity o f [facility] 2021-04-23 2021-04-23 [facility] 1.2.840.114 [id number] Univers 11:01:51 11:16:51 Visit [facility] [id number] it y [facility] [id number] Isaac as Professio [phone] [address] Office [facility] One 2021-04-23 2021-04-23 Outpatient R HOLLY [facility] [id number] Univers 11:00:00 11:00:00 VICKIE león [facility] 2021-04-23 2021-04-23 Orders Doctor ANITHA 1.2.840.114 [id number] Univers 00:00:00 00:00:00 Only UnassignedMEAGHAN [id number] ity of [place] [facility] 4.2.7.2.686 Isaac as [id number] [facility] [address] [place] 2021-03-26 2021-03-26 Office [facility] 1.2.840.114 [id number] Univers 13:17:30 13:47:30 Visit [facility] [id number] it y of [place] 4.2.7.2.686 Isaac as Professio [phone] [address] Office Building One 2021-03-26 2021-03-26 Outpatient R HOLLY [facility] [id number] [facility] 13:30:00 13:30:00 VICKIE [facility] 2021-01-26 2021-01-26 Outpatient R JONO [facility] [id number] [facility] 14:10:00 14:03:34 [facility] 2020-08-29 2020-08-29 Telephone ANITHA Lanier [id number] [facility] 00:00:00 00:00:00 Emani AVILAY [id number] it y of [facility] [id number] Isaac as [phone] [facility] 019 [place] 2020-08-28 2020-08-28 Laboratory Lab, Adc Fam Pob I [email or web address] 1.2. [id number] [id number] Univers 15:13:22 15:43:50 Only AneFaby rubio Health 350.1.13.10 ity of [place] 4.2.7.2.686 Isaac as Professio [phone] Nv dicla nal [address] [place] [address] Office Building One Results This patient has no known results.
[2022-09-05 13:30] LABS: SARS-COV-2 RT PCR NEGATIVE (NEGATIVE)
--- NOTE | 2022-09-05 15:17 | EDPHYS ---
Physician Documentation [facility] Name: Nataliia Allen Age: 31 yrs Sex: Female : 1990 Arrival Date: 09/05/2022 Time: 11:51 Bed 10 Private MD: ED Physician Bryant Chapa HPI: 09/05 13:06 This 31 yrs old Female presents to ER via Ambulatory with complaints of Flu Symptoms. snw 13:06 The patient reports fever, not measured (subjective). Onset: The symptoms/episode snw began/occurred suddenly. Modifying factors: there are no obvious modifying factors. Associated signs and symptoms: Pertinent positives: cough, headache, sinus congestion, sore throat. Severity of symptoms: At their worst the symptoms were moderate. The patient has not experienced similar symptoms in the past. The patient has not recently seen a physician. BELT WEAVER: 12:27 LMP 08/31/2022 [facility] Historical: - PMHx: 12:27 Anxiety; [facility] - Immunization history:: Adult Immunizations up to date. - Social history:: Smoking status: Patient denies any tobacco usage or history of. ROS: 13:03 Eyes: Negative for injury, pain, redness, and discharge. snw 13:03 Neck: Negative for injury, pain, and swelling, Cardiovascular: Negative for chest pain, palpitations, and edema. 13:03 Back: Negative for injury and pain, : Negative for injury, bleeding, discharge, and swelling, MS/Extremity: Negative for injury and deformity, Skin: Negative for injury, rash, and discoloration, Neuro: Negative for headache, weakness, numbness, tingling, and seizure. 13:03 Constitutional: Positive for body aches, chills, fatigue, fever, malaise, poor PO intake. 13:03 ENT: Positive for sore throat. 13:03 Respiratory: Positive for cough. 13:03 Abdomen/GI: Positive for nausea. Exam: 13:01 Head/Face: Normocephalic, atraumatic. Eyes: Pupils equal round and reactive to light, snw extra-ocular motions intact. Lids and lashes normal. Conjunctiva and sclera are non-icteric and not injected. Cornea within normal limits. Periorbital areas with no swelling, redness, or edema. ENT: Nares patent. No nasal discharge, no septal abnormalities noted. Tympanic membrane right normal, erythema and fluid to left TM and external auditory canals are clear. Oropharynx with mild redness, no swelling, masses, exudates, or evidence of obstruction, uvula midline. Mucous membranes moist. Neck: Trachea midline, no thyromegaly or masses palpated, and no cervical lymphadenopathy. Supple, full range of motion without nuchal rigidity, or vertebral point tenderness. No Meningismus. Chest/axilla: Normal chest wall appearance and motion. Nontender with no deformity. No lesions are appreciated. Cardiovascular: Regular rate and rhythm with a normal S1 and S2. No gallops, murmurs, or rubs. Normal PMI, no JVD. No pulse deficits. 13:01 Abdomen/GI: Soft, non-tender, with normal bowel sounds. No distension or tympany. No guarding or rebound. No evidence of tenderness throughout. Back: No spinal tenderness. No costovertebral tenderness. Full range of motion. Skin: Warm, dry with normal turgor. Normal color with no rashes, no lesions, and no evidence of cellulitis. MS/ Extremity: Pulses equal, no cyanosis. Neurovascular intact. Full, normal range of motion. Neuro: Awake and alert, GCS 15, oriented to person, place, time, and situation. Cranial nerves II-XII grossly intact. Motor strength 5/5 in all extremities. Sensory grossly intact. Cerebellar exam normal. Normal gait. Psych: Awake, alert, with orientation to person, place and time. Behavior, mood, and affect are within normal limits. 13:01 Constitutional: The patient appears alert, awake, uncomfortable. 13:01 Respiratory: the patient does not display signs of respiratory distress, Respirations: normal, Breath sounds: are clear throughout. Vital Signs: 12:24 BP 125 / 84; Pulse 76; Resp 16; Temp 98.8; Pulse Ox 100% ; Weight 86.18 kg; Height 5 jh5 ft. 3 in. (160.02 cm); Pain 0/10; 15:42 BP 121 / 71; Pulse 75; Resp 20; Temp 97.9; Pulse Ox 99% ; kb3 12:24 Body Mass Index 33.66 (86.18 kg, 160.02 cm) jh5 MDM: 12:37 Patient medically screened. snw 15:35 Data reviewed: vital signs, nurses notes. Data interpreted: Pulse oximetry: on room air snw is 100 %. Interpretation: normal. Counseling: I had a detailed discussion with the patient and/or guardian regarding: the historical points, exam findings, and any diagnostic results supporting the discharge/admit diagnosis, lab results, the need for outpatient follow up, to return to the emergency department if symptoms worsen or persist or if there are any questions or concerns that arise at home. Special discussion: I have referred the patient to see his PCP for further evaluation of high blood pressure. Based on the history and exam findings, there is no indication for further emergent testing or inpatient evaluation. I discussed with the patient/guardian the need to see the primary care provider for further evaluation of the symptoms. 09/05 12:29 Order name: COVID-19/FLU A+B; Complete Time: 13:34 jh5 09/05 12:29 Order name: Strep; Complete Time: 13:01 5 09/05 12:58 Order name: Throat Culture EDMS Administered Medications: No medications were administered Disposition: 09/06 07:29 Co-signature as Attending Physician, Bryant Chapa MD I agree with the assessment and rt plan of care. Disposition Summary: 09/05/22 15:16 Discharge Ordered Location: Home snw Condition: Stable snw Diagnosis - Acute bronchitis, unspecified snw Followup: snw - With: Emergency Department - When: As needed - Reason: Worsening of condition Followup: snw - With: Private Physician - When: 2 - 3 days - Reason: Recheck today's complaints, Continuance of care, Re-evaluation by your physician Discharge Instructions: - Discharge Summary Sheet snw - Acute Bronchitis, Adult snw - Viral Respiratory Infection snw - Rehydration, Adult snw Forms: - Medication Reconciliation Form snw - Thank You Letter snw - Antibiotic Education snw - Prescription Opioid Use snw - Work release form snw Prescriptions: - Zyrtec 10 mg Oral Tablet - take 1 tablet by ORAL route once daily As needed; 20 tablet; Refills: 0, snw Product Selection Permitted - Tessalon Perles 100 mg Oral Capsule - take 1 capsule by ORAL route every 8 hours As needed; 15 capsule; Refills: 0, snw Product Selection Permitted - Prednisone 20 mg Oral Tablet - take 2 tablets by ORAL route once daily for 5 days; 10 tablet; Refills: 0, snw Product Selection Permitted - Pepcid 20 mg Oral Tablet - take 1 tablet by ORAL route once daily; 20 tablet; Refills: 0, Product snw Selection Permitted Signatures: Dispatcher [employer] Lore Isaac FNP-C FNP-Johana Shabazz, RN RN jh5 Bryant Chapa MD MD rt
--- NOTE | 2022-09-05 15:17 | ER ---
Nurse's Notes [facility] Name: Nataliia Allen Age: 31 yrs Sex: Female : 1990 Arrival Date: 09/05/2022 Time: 11:51 Bed 10 Private MD: Diagnosis: Acute bronchitis, unspecified Presentation: 09/05 12:24 Chief complaint: Patient states: started coughing yesterday, today i have sore throat jh5 and body aches. Coronavirus screen: Vaccine status: Patient reports being unvaccinated. Client denies travel out of the [place] in the last 14 days. Ebola Screen: Patient negative for fever greater than or equal to 101.5 degrees Fahrenheit, and additional compatible Ebola Virus Disease symptoms Patient denies exposure to infectious person. Patient denies travel to an Ebola-affected area in the 21 days before illness onset. Initial Sepsis Screen: Does the patient meet any 2 criteria? No. Patient's initial sepsis screen is negative. Does the patient have a suspected source of infection? No. Patient's initial sepsis screen is negative. Risk Assessment: Do you want to hurt yourself or someone else? Patient reports no desire to harm self or others. 12:24 Method Of Arrival: Ambulatory [facility] 12:24 Acuity: GITA 3 jh5 14:00 Onset of symptoms was September 04, 2022 at 20:00. kb3 Triage Assessment: 12:27 General: Appears uncomfortable, obese, well groomed, well developed, Behavior is calm, jh5 cooperative, appropriate for age. Pain: Denies pain. 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 - Social history:: Smoking status: Patient denies any tobacco usage or history of. Screenin:00 Abuse screen: Denies threats or abuse. Denies injuries from another. Nutritional kb3 screening: No deficits noted. Tuberculosis screening: No symptoms or risk factors identified. Fall Risk None identified. Assessment: 14:00 Reassessment: Patient appears in no apparent distress at this time. No changes from kb3 previously documented assessment. General: Appears in no apparent distress. distressed, Behavior is calm, cooperative, Received care of pt from lobby, ambulatory without distress. Pt reports dry cough that began last night and body aches, chills, headache that began this morning. Pt denies fever . Vital Signs: 12:24 BP 125 / 84; Pulse 76; Resp 16; Temp 98.8; Pulse Ox 100% ; Weight 86.18 kg; Height 5 [facility] ft. 3 in. (160.02 cm); Pain 0/10; 15:42 BP 121 / 71; Pulse 75; Resp 20; Temp 97.9; Pulse Ox 99% ; kb3 12:24 Body Mass Index 33.66 (86.18 kg, 160.02 cm) [facility] ED Course: 11:51 Patient arrived in ED. as 12:06 L[facility] Yee [facility]C [facility] snw 12:06 Bryant Chapa MD is Attending Physician. formerly [facility] 12:24 Johana Vivas, RN is Primary Nurse. [facility] 12:27 Triage completed. [facility] 12:27 Arm band placed on right wrist. [facility] 12:37 Strep Sent. [facility] 12:37 COVID-19/FLU A+B Sent. [facility] 14:00 Patient has correct armband on for positive identification. Bed in low position. Call kb3 light in reach. Warm blanket given. 14:00 No provider procedures requiring assistance completed. Patient did not have IV access kb3 during this emergency room visit. Administered Medications: No medications were administered Medication: 14:00 VIS not applicable for this client. kb3 Outcome: 15:16 Discharge ordered by . snw 15:42 Discharged to home ambulatory. kb3 15:42 Condition: stable 15:42 Discharge instructions given to patient, Instructed on discharge instructions, follow up and referral plans. medication usage, Demonstrated understanding of instructions, follow-up care, medications, Prescriptions given X 4. 15:43 Patient left the ED. kb3 Signatures: Lore Yee FNP-C BISTRO SERVER-CsnLesly Valencia as Johana Vivas, RN RN [facility] Marisela Lagos RN RN kb3
[2022-09-05 15:54] VITALS: BP 121/71; TEMP 97.9; O2SAT 99
== END 2022-09-05 15:43 | disposition home or self-care (01) ==
LOC: ER 11:49
DX: J20.9 Acute bronchitis, unspecified (principal); Z20.822 Contact with and (suspected) exposure to COVID-19
CPT/HCPCS: 0240U; 87070; 87081; 99283

== ENCOUNTER 2024-06-18 07:33 | Emergency (ER) | payer SELFPAY ==
--- OUTSIDE RECORDS SUMMARY | 2024-06-18 07:36 | XMS REPORT | Continuity of Care Document ---
Author Name Unknown Address [address] [facility] [address] [place] [address] [facility] Address [address] [facility] [address] [place] [address] Care Team Providers Care Loan Approver Name Role Phone VICKIE BARRERA Primary Care Physician Clarice VICKIE Lin Attending Clinician Vickie Hirsch MD Attending Clinician + [phone] [facility] Attending Clini sonia Unavailable Breanna Ortiz Attending Clinician + BREANNA MELO Attending Clinician Unavail Vickie Hair MD Attending Clinician + [phone] ROBERT CROCKER Attending Clinician Unavailable JULITA VALLADARES Attending Clinician Unavailable DANA WALTER Attending Clinician Unavaila AUTUMN Hamilton Attending Clinician Unavailable Doctor Unassigned, [place] Attending Clinician U ABDOUL Linton Attending Clinician Unavailab Sneha Briggs Attending Clinician [phone] CARMEN HARDEN Attending Clinician Unavailable Res-Colpo/Cy, [facility] Attending Clinician Un available Carmen Harden MD Attending Clinician [phone] AkinBreanna Marsh Attending Clinician + CONCEPCION DE LA CRUZ Attending Clinician Unavailable Emani Guerrier Attending Clinician [phone] Lab, Adc Fam Pob I Attending Clinician Faby Valentin Attending Clinician [phone] Payers Payer Name Policy Type Policy Number Effective Date Expirati on Date Source [id number] 2017 00:00:00 [facility] [id number] 2022 00:00:00 Problems Condition Name Condition Details Condition Category Status Onset Date Resolution Date Last Treatment Date Treating Clinician Comments Source Other general counseling and advice for contracept felicitas management Other general counseling and advice for contracept felicitas management Disease Active 06-02 00:00: 00 [facility] Obesity (BMI 30-39.9) Obesity (BMI 30-39.9) Disease Active 06-02 00:00: 00 [facility] History of tubal ligation History of tubal ligation Disease Active 06-02 00:00: 00 [facility] Allergies, Adverse Reactions, Alerts Allergy Name Allergy Type Status Severity Reaction(s) Onset Date Inactive Date Treating Clinician Comments Source NO KNOWN ALLERGIE S Drug Class Active [facility] Social History Social Habit Start Date Stop Date Quantity Comments Source Gender identity [facility] Alcoholic beverage intake 2024-05-03 00:00:00 2024-05-03 00:00:00 .14 /d [facility] Tobacco use and exposure 2023-04-26 00:00:00 2023-04-26 00:00:00 Smokeless tobacco non-user [facility] Alcohol intake 2023-04-26 00:00:00 2023-04-26 00:00:00 .14 /d [facility] History of Social function 2023-04-26 00:00:00 2023-04-26 00:00:00 [facility] Exposure to SARS-CoV-2 (event) 2022-05-21 00:00:00 2022-05-31 10:10:00 Not sure [facility] Sex assigned at 1990 00:00:00 1990 00:00:00 [facility] Smoking Status Start Date Stop Date Source Never smoked tobacco [facility] Medications Ordered Medication Name Filled Medication Name Start Date Stop Date Current Medication? Ordering Clinician Indication Dosage Frequency Signature (SIG) Comments Components Source montelukast 10 mg tablet 2023-0 8-22 00:00: 00 Yes 10mg Take 1 tablet by mouth every morning. [facility] escitalopra m oxalate 10 mg tablet 2023-0 8-22 00:00: 00 Yes [id number] 10mg Take 1 tablet by mouth in the morning. [facility] montelukast 10 mg tablet 2023-0 7-24 00:00: 00 06-06 00:00 :00 No 10mg Take 1 tablet by mouth every morning. [facility] escitalopra m oxalate 10 mg tablet 0 7-24 00:00: 00 06-06 00:00 :00 No [id number] 10mg Take 1 tablet by mouth in the morning. [facility] montelukast 10 mg tablet 2023-0 5-20 00:00: 00 05-07 00:00 :00 No 10mg TAKE 1 TABLET BY MOUTH EVERY MORNING [facility] escitalopra m oxalate 10 mg tablet 2023-0 5-20 00:00: 00 05-07 00:00 :00 No [id number] 10mg TAKE 1 TABLET BY MOUTH IN THE MORNING [facility] MONTELUKAST 10 mg tablet 2022-1 0-16 00:00: 00 03-04 00:00 :00 No 10mg TAKE 1 TABLET BY MOUTH EVERY MORNING [facility] montelukast 10 mg tablet 2022-0 8-10 00:00: 00 Yes 10mg Take 1 tablet by mouth every morning. [facility] escitalopra m oxalate (LEXAPRO) 10 mg tablet 2022-0 7-12 00:00: 00 03-04 00:00 :00 No [id number] 10mg Take 1 tablet by mouth in the morning. [facility] montelukast 10 mg tablet 2022-0 3-20 00:00: 00 05-25 00:00 :00 No TAKE 1 TABLET BY MOUTH DAILY IN MORNING [facility] MONTELUKAST 10 mg tablet 03-24 00:00: 00 Yes TAKE 1 TABLET BY MOUTH DAILY IN MORNING [facility] ESCITALOPRA M OXALATE 5 mg tablet 03-24 00:00: 00 Yes [id number] 5mg TAKE 1 TABLET BY MOUTH DAILY [facility] diazePAM 5 mg tablet 11-12 00:00: 00 Yes [id number] 5mg Take 1 tablet by mouth 2 (two) times daily as needed for Agitation or Anxiety. [facility] diazePAM 5 mg tablet 2020-10 0-15 00:00: 00 11-12 00:00 :00 No [id number] 5mg Take 1 tablet by mouth 2 (two) times daily as needed for Agitation or Anxiety. [facility] escitalopra m oxalate 5 mg tablet 03-26 00:00: 00 03-24 00:00 :00 No [id number] 5mg Take 1 tablet by mouth daily. [facility] diazePAM 10 mg tablet 03-26 00:00: 00 07-14 00:00 :00 No [id number] 10mg Take 1 tablet by mouth 3 (three) times daily. [facility] montelukast 10 mg tablet 10-24 00:00: 00 03-24 00:00 :00 No [facility] Immunizations Ordered Immunization Name Filled Immunization Name Date Status Comments Source SARS-COV-2 COVID-19 PFIZER VACCINE 2021-01-26 00:00:00 Completed [facility] SARS-COV-2 COVID-19 PFIZER VACCINE 2021-01-26 00:00:00 Completed [facility] SARS-COV-2 COVID-19 PFIZER VACCINE 2021-01-26 00:00:00 Completed [facility] SARS-COV-2 COVID-19 PFIZER VACCINE 2021-01-26 00:00:00 Completed [facility] SARS-COV-2 COVID-19 PFIZER VACCINE 2021-01-26 00:00:00 Completed [facility] SARS-COV-2 COVID-19 PFIZER VACCINE 2021-01-26 00:00:00 Completed [facility] SARS-COV-2 COVID-19 PFIZER VACCINE 2021-01-05 00:00:00 Completed [facility] SARS-COV-2 COVID-19 PFIZER VACCINE 2021-01-05 00:00:00 Completed [facility] SARS-COV-2 COVID-19 PFIZER VACCINE 2021-01-05 00:00:00 Completed [facility] SARS-COV-2 COVID-19 PFIZER VACCINE 2021-01-05 00:00:00 Completed [facility] SARS-COV-2 COVID-19 PFIZER VACCINE 2021-01-05 00:00:00 Completed [facility] SARS-COV-2 COVID-19 PFIZER VACCINE 2021-01-05 00:00:00 Completed [facility] SARS-COV-2 COVID-19 PFIZER VACCINE Unknown Completed [facility] SARS-COV-2 COVID-19 PFIZER VACCINE Unknown Completed [facility] SARS-COV-2 COVID-19 PFIZER VACCINE Unknown Completed [facility] SARS-COV-2 COVID-19 PFIZER VACCINE Unknown Completed [facility] SARS-COV-2 COVID-19 PFIZER VACCINE Unknown Completed [facility] SARS-COV-2 COVID-19 PFIZER VACCINE Unknown Completed [facility] SARS-COV-2 COVID-19 PFIZER VACCINE Unknown Completed [facility] SARS-COV-2 COVID-19 PFIZER VACCINE Unknown Completed [facility] SARS-COV-2 COVID-19 PFIZER VACCINE Unknown Completed [facility] SARS-COV-2 COVID-19 PFIZER VACCINE Unknown Completed [facility] SARS-COV-2 COVID-19 PFIZER VACCINE Unknown Completed [facility] SARS-COV-2 COVID-19 PFIZER VACCINE Unknown Completed [facility] SARS-COV-2 COVID-19 PFIZER VACCINE Unknown Completed [facility] SARS-COV-2 COVID-19 PFIZER VACCINE Unknown Completed [facility] SARS-COV-2 COVID-19 PFIZER VACCINE Unknown Completed [facility] HPV9 Unknown Completed [facility] SARS-COV-2 COVID-19 PFIZER VACCINE Unknown Completed [facility] SARS-COV-2 COVID-19 PFIZER VACCINE Unknown Completed [facility] SARS-COV-2 COVID-19 PFIZER VACCINE Unknown Completed [facility] HPV9 Unknown Completed [facility] SARS-COV-2 COVID-19 PFIZER VACCINE Unknown Completed [facility] SARS-COV-2 COVID-19 PFIZER VACCINE Unknown Completed [facility] SARS-COV-2 COVID-19 PFIZER VACCINE Unknown Completed [facility] HPV9 Unknown Completed [facility] HPV9 Unknown Completed [facility] SARS-COV-2 COVID-19 PFIZER VACCINE Unknown Completed [facility] SARS-COV-2 COVID-19 PFIZER VACCINE Unknown Completed [facility] SARS-COV-2 COVID-19 PFIZER VACCINE Unknown Completed [facility] HPV9 Unknown Completed [facility] HPV9 Unknown Completed [facility] Vital Signs Vital Name Observation Time Observation Value Comments S ource Body temperature 2024-06-03 21:50:00 36.61 Shanel [facility] Systolic blood pressure 2024-05-03 20:16:00 122 mm[Hg] [facility] Diastolic blood pressure 2024-05-03 20:16:00 86 mm[Hg] [facility] Heart rate 2024-05-03 20:16:00 59 /[facility] Body temperature 2024-05-03 20:16:00 36.11 Shanel [facility] Respiratory rate 2024-05-03 20:16:00 18 /min [facility] Body height 2024-05-03 20:16:00 160 cm [facility] Body weight 2024-05-03 20:16:00 96.163 kg [facility] BMI 2024-05-03 20:16:00 37.55 kg/m2 [facility] Systolic blood pressure 2021-11-12 15:09:00 113 mm[Hg] [facility] Diastolic blood pressure 2021-11-12 15:09:00 79 mm[Hg] [facility] Heart rate 2021-11-12 15:09:00 83 /min [facility] Body height 2021-11-12 15:09:00 160 cm [facility] Body weight 2021-11-12 15:09:00 90.719 kg [facility] BMI 2021-11-12 15:09:00 35.43 kg/m2 [facility] Procedures Procedure Date / Time Performed Performing Clinician Source GARDASIL 9 (HPV 9V) VACCINE 2024-06-03 21:50:32 Breanna Melo [facility] POCT URINALYSIS W/O SPECIFIC GRAVITY 2024-05-03 21:23:00 Robert Crocker [facility] THYROID STIMULATING HORMONE 2024-05-03 21:10:00 [facility] GLYCOS[facility] HEMOGLOBIN (A1C) 2024-05-03 21:10:00 Obi [facility] GC & CHLAMYDIA AMPLIFIED ASSAY 2024-05-03 21:10:00 Obi [facility] HIV 1/2 AG-AB WITH REFLEX 2024-05-03 21:10:00 Obi [facility] HIGH RISK HPV-THIN PREP 2024-05-03 21:10:00 Rocael Crocker [facility] PAP SMEAR-LIQUID BASED-CP 2024-05-03 21:10:00 Obi [facility] SYPHILIS IGG/IGM 2024-05-03 21:10:00 [facility] GARD[facility]IL 9 (HPV 9V) VACCINE 2024-05-03 21:06:19 Robert Crocker [facility] ASSIGNMENT OF BENEFITS 2023-04-26 19:36:28 Docto r Unassigned, [place]rone [facility] Encounters Start Date/Time End Date/Time Encounter Type Admission Type Attending Clinicians Care Facility Care Department Encounter ID Source 2024-11-11 14:30:00 2024-11-11 14:30:00 Outpatient R [facility] [id number] [facility] 2024-06-10 16:15:00 2024-06-10 16:15:00 Outpatient R VICKIE BARRERA [facility] [id number] [facility] 2024-06-06 00:00:00 2024-06-06 13:19:32 [facility] 1..840.114 350.1.13.10 4.2.7.2.686 [id number] [facility] 2024-06-03 14:30:00 2024-06-03 16:49:51 Nurse Visit Nurse, Yung Rm[facility] Rgv Cprit Obgyn Breanna Melo Nurse, Yung R[facility]p Rgv Cprit Obgyn [facility] ELEVATOR OPERATOR [facility] CHILD [facility] 1..840.114 350.1.13.10 4.2.7.2.686 [id number] [facility] 2024-06-03 14:30:00 2024-06-03 16:49:51 Outpatient R BREANNA MELO [facility] [id number] [facility] 2024-05-07 00:00:00 2024-05-08 08:45:59 Vickie Andino [facility] 1..840.114 350.1.13.10 4.2.7.2.686 [id number] [facility] 2024-05-03 15:15:00 2024-05-03 16:10:36 Outpatient R ROBERT CROCKER [facility] [id number] [facility] 2024-05-03 15:15:00 2024-05-03 16:10:36 Office Visit Robert Crocker [facility] ELEVATOR OPERATOR [facility] & CHILD [facility] 1..840.114 350.1.13.10 4.2.7.2.686 [id number] [facility] 2024-03-29 08:30:00 2024-03-29 08:30:00 Outpatient R JULITA VALLADARES [facility] [id number] [facility] 2024-03-26 13:15:00 2024-03-26 13:15:00 Outpatient R ROBERT CROCKER [facility] [id number] [facility] 2024-03-04 00:00:00 2024-03-04 11:03:52 Juan Antonio WorkmanwolfgangVickie [facility] 1.2.840.114 350.1.13.10 4.2.7.2.686 [id number] [facility] 2024-03-04 00:00:00 2024-03-04 10:30:26 Vickie Andino [facility] 1.2.840.114 350.1.13.10 4.2.7.2.686 [id number] [facility] 2024-02-15 08:00:00 2024-02-15 08:00:00 Outpatient AUTUMN GALVEZ [facility] [id number] [facility] 2023-08-24 08:00:00 2023-08-24 08:00:00 Outpatient AUTUMN GALVEZ [facility] [id number] [facility] 2023-07-31 00:00:00 2023-07-31 00:00:00 Juan Antonio WorkmanwolfgangVickie [facility] 1.2.840.114 350.1.13.10 4.2.7.2.686 [id number] [facility] 2023-06-12 15:45:00 2023-06-12 15:45:00 Outpatient VICKIE DAVIS [facility] [id number] [facility] 2023-05-31 15:45:00 2023-05-31 15:45:00 Outpatient VICKIE DAVIS [facility] [id number] [facility] 2023-05-29 10:00:00 2023-05-29 10:00:00 Outpatient VICKIE DAVIS [facility] [id number] [facility] 2023-05-25 00:00:00 2023-05-25 00:00:00 [facility] 1..840.114 350.1.13.10 4.2.7.2.686 [id number] [facility] 2023-05-24 00:00:00 2023-05-24 00:00:00 Vickie Andino [facility] 1..840.114 350.1.13.10 4.2.7.2.686 [id number] [facility] 2023-04-26 15:00:00 2023-04-26 15:00:00 Outpatient VICKIE DAVIS [facility] [id number] [facility] 2023-04-26 00:00:00 2023-04-26 00:00:00 Orders Only Doctor Unassigned, [place] [facility] 1..840.114 350.1.13.10 4.2.7.2.686 [id number] [facility] 2023-03-14 15:15:00 2023-03-14 15:15:00 Outpatient VICKIE DAVIS [facility] [id number] [facility] 2023-03-07 10:15:00 2023-03-07 10:15:00 Outpatient VICKIE DAVIS [facility] [id number] [facility] 2022-12-30 00:00:00 2022-12-30 00:00:00 Vickie Andino [facility] 1..840.114 350.1.13.10 4.2.7.2.686 [id number] [facility] 2022-09-05 16:30:00 2022-09-05 16:30:00 Outpatient VICKIE DAVIS [facility] [id number] [facility] 2022-06-01 09:00:00 2022-06-01 09:00:00 Outpatient R ABDOUL VAZ [facility] [id number] [facility] 2022-03-24 00:00:00 2022-03-24 00:00:00 [facility] 1.2.840.114 350.1.13.10 4.2.7.2.686 [id number] [facility] 2021-11-12 09:15:00 2021-11-12 09:23:27 [facility] OFF[facility] 1.2.840.114 350.1.13.10 4.2.7.2.686 [id number] [facility] 2021-11-12 09:15:00 2021-11-12 09:15:00 Outpatient VICKIE DAVIS [facility] [id number] [facility] 2021-11-09 13:00:00 2021-11-09 13:00:00 Outpatient VICKIE DAVIS [facility] [id number] [facility] 2021-11-04 09:45:00 2021-11-04 09:45:00 Outpatient Luz Marina VICKIE BARRERA [facility] [id number] [facility] 2021-11-03 00:00:00 2021-11-03 00:00:00 Telephone [facility] 1.2.840.114 350.1.13.10 4.2.7.2.686 [id number] [facility] 2021-10-27 13:00:00 2021-10-27 13:00:00 Outpatient R VICKIE BARRERA [facility] [id number] [facility] 2021-10-27 00:00:00 2021-10-27 00:00:00 Orders Only Doctor Unassigned, [place] [facility] 1.84.114 350.1.13.10 4.2.7.2.686 [id number] [facility] 2021-10-22 08:45:00 2021-10-22 08:45:00 Outpatient Luz Marina HOLLY VICKIE [facility] [id number] [facility] 2021-10-13 00:00:00 2021-10-13 00:00:00 [facility] 1..114 350.1.13.10 4.2.7.2.686 [id number] [facility] 2021-09-23 09:00:00 2021-09-23 09:49:22 Outpatient CARMEN DAUGHERTY [facility] [id number] [facility] 2021-09-23 08:52:14 2021-09-23 09:49:22 Office Visit Res-Colpo/L eep, [facility] Harden [facility] 1..114 350.1.13.10 4.2.7.2.686 [id number] [facility] 2021-09-23 09:00:00 2021-09-23 09:00:00 Outpatient CARMEN DAUGHERTY [facility] [id number] [facility] 2021-09-23 08:30:00 2021-09-23 08:30:00 Outpatient R CARMEN HARDEN [facility] [id number] [facility] 2021-09-23 08:30:00 2021-09-23 08:30:00 Outpatient CARMEN DAUGHERTY [facility] [id number] [facility] 2021-09-23 00:00:00 2021-09-23 00:00:00 Orders Only Doctor Unassigned, [place] [facility] 1..114 350.1.13.10 4.2.7.2.686 [id number] [facility] 2021-07-30 09:46:50 2021-07-30 10:01:50 Office Visit Vickie Barrera [facility] Valentin?Lele gatica [facility] Office Building 1..840.114 350.1.13.10 4.2.7.2.686 [id number] [facility] 2021-07-30 10:00:00 2021-07-30 10:00:00 Outpatient VICKIE DAVIS [facility] [id number] [facility] 2021-07-21 10:15:00 2021-07-21 10:15:00 Outpatient VICKIE DAVIS [facility] [id number] [facility] 2021-07-19 00:00:00 2021-07-19 00:00:00 Patient Secure Msg Breanna Melo [facility] ELEVATOR OPERATOR [facility] & CHILD [facility] 1.840.114 350.1.13.10 4.2.7.2.686 [id number] [facility] 2021-07-14 00:00:00 2021-07-14 00:00:00 Refill Holly [facility] 1..840.114 350.1.13.10 4.2.7.2.686 [id number] [facility] 2021-07-06 00:00:00 2021-07-06 00:00:00 Telephone Breanna Melo [facility] ELEVATOR OPERATOR [facility] & CHILD [facility] 1.840.114 350.1.13.10 4.2.7.2.686 [id number] [facility] 2021-06-22 00:00:00 2021-06-22 00:00:00 Telephone Breanna Melo [facility] ELEVATOR OPERATOR [facility] & CHILD [facility] 1.2840.114 350.1.13.10 4.2.7.2.686 [id number] [facility] 2021-06-22 00:00:00 2021-06-22 00:00:00 Telephone Breanna Melo [facility] ELEVATOR OPERATOR [facility] 1.2840.114 350.1.13.10 4.2.7.2.686 [id number] [facility] 2021-06-22 00:00:00 2021-06-22 00:00:00 Telephone Breanna Melo [facility] ELEVATOR OPERATOR [facility] 1..114 350.1.13.10 4.2.7.2.686 [id number] [facility] 2021-06-08 00:00:00 2021-06-08 00:00:00 Patient Secure Msg Breanna Melo [facility] ELEVATOR OPERATOR [facility] CHILD [facility] 1..114 350.1.13.10 4.2.7.2.686 [id number] [facility] 2021-06-02 09:36:52 2021-06-02 10:53:26 Office Visit Breanna Melo [facility] ELEVATOR OPERATOR [facility] CHILD [facility] 1.0.114 350.1.13.10 4.2.7.2.686 [id number] [facility] 2021-06-02 09:30:00 2021-06-02 09:30:00 Outpatient R BREANNA MELO [facility] [id number] [facility] 2021-04-23 11:01:51 2021-04-23 11:16:51 Office Visit Vickie Barrera [facility] Mckayla pang [facility] 1..114 350.1.13.10 4.2.7.2.686 [id number] [facility] 2021-04-23 11:00:00 2021-04-23 11:00:00 Outpatient Luz Marina WORKMANWOLFGANGVICKIE [facility] [id number] [facility] 2021-04-23 00:00:00 2021-04-23 00:00:00 Orders Only Doctor Unassigned, [place] [facility] 1.114 350.1.13.10 4.2.7.2.686 [id number] [facility] 2021-03-26 13:17:30 2021-03-26 13:47:30 Office Visit JacintawolfgangVickie [facility] Office Building One ..114 350..13.10 4.2.7.2.686 [id number] [facility] 2021-03-26 13:30:00 2021-03-26 13:30:00 Outpatient Luz Marina FARIASDARIELAVICKIE [facility] [id number] [facility] 2021-01-26 14:10:00 2021-01-26 14:03:34 Outpatient CONCEPCION BARTH [facility] [id number] [facility] 2020-08-29 00:00:00 2020-08-29 00:00:00 Telephone Emani Lanier [facility] .114 350.1.13.10 4.2.7.2.686 [id number] [facility] 2020-08-28 15:13:22 2020-08-28 15:43:50 Laboratory Only Lab, Adc Faby Armas [facility] Office [facility] One .114 350.1.13.10 4.2.7.2.686 [id number] [facility] Results Test Description Test Time Test Comments Results Result Co mments [facility] WITH [id number] 05:37:10* Test Item Value Reference Range Interpretation Comme nts HIV Semi-quantitative (test code = 71774-9) 0.10 Negative VALERIA (test code = VALERIA) Non-reactive for HIV-1 antigen and HIV-1/HIV-2 antibodies. ?No laboratory evidence of HIV infection. ?Repeat in 2-4 weeks if acute HIV infection is suspected. [facility]2024-[facility]-04 05:05:47* Test Item Value Reference Range Interpretation Comme [facility] HGB A1C (test code = 4548-4) 5.2 % 4.0-5.7 VALERIA (test code = VALERIA) Reference RangesNormal: <5.7%Prediabetes: 5.7 - 6.4%Diabetes: > 6.5% Lab Interpretation (test code = 99027-6) Normal [facility]IMUL[facility] [id number] 04:27:05 * Test Item Value Reference Range Interpretation Comme nts TSH (test code = 2013514902) 0.99 0.45-4.70 Biotin has been reported to cause a negative bias, interpret results relative to patient's use of biotin. Lab Interpretation (test code = 30236-5) Normal [facility] w/o Specific [id number] 21:23:00* Test Item Value Reference Range Interpretation Comme nts POCT PH U (test code = 3254) 5 mg/dl 5-8 POCT U LEUK EST (test code = 3263) trace Negative - Negative POCT U NIT (test code = 3262) neg Negative - Negati ve POCT U PROT (test code = 3259) trace Negative - Negat felicitas POCT U GLU (test code = 3256) neg Negative - Negati ve POCT U KETONE (test code = 3258) neg Negative - Neg ative POCT U BLD (test code = 3257) neg Negative - Negati ve [facility]
[2024-06-18 08:30] LABS: SARS-CoV-2 Antigen CONTROL BLUE LINE VIS/BG OK; SARS-CoV-2 Antigen Rapid Res Negative (Negative)
--- NOTE | 2024-06-18 08:52 | RAD REPORT ---
EXAM DESCRIPTION: Niallt Single View06/18/2024 8:35 am CLINICAL HISTORY: COUGH COMPARISON: Chest Single View dated 01/14/2019; Chest Single View dated 11/07/2017; CHEST SINGLE VIEW d ated 12/17/2015 TECHNIQUE: Portable AP view of the chest. FINDINGS: The lungs are clear. No pneumothorax or effusion. The cardiomediastinal contours are unre markable. IMPRESSION: No acute cardiopulmonary process.
--- NOTE | 2024-06-18 09:12 | EDPHYS ---
Physician Documentation [facility] Name: Nataliia Allen Age: 33 yrs Sex: Female : 1990 Arrival Date: 06/18/2024 Time: 07:33 Bed 5 Private MD: ED Physician Dany Thorne HPI: 06/18 08:01 This 33 yrs old Female presents to ER via Ambulatory with complaints of Cough, Flu rn Symptoms. 08:01 The patient or guardian reports chest pain that is located primarily in the substernal rn area. The pain does not radiate. The patient or guardian reports cough, flu symptoms. Onset: The symptoms/episode began/occurred 3 day(s) ago. Severity of symptoms: At their worst the symptoms were mild, in the emergency department the symptoms are unchanged. Associated signs and symptoms: Pertinent positives: cough, Pertinent negatives: abdominal pain, shortness of breath, syncope. The chest pain is described as a pressure, sharp. Severity of pain: At its worst the pain was mild in the emergency department the pain is unchanged. The patient has not experienced similar symptoms in the past. Patient reports 3 to 4 days of productive cough, nasal congestion. Cough worse at night along with congestion. Denies shortness of breath. Non-smoker. 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 Reports substernal chest pressure that feels sharp with cough. No history of DVT or PE. No trauma.. [employer]: 07:46 LMP N/A - , Not mb9 Historical: - Allergies: 07:49 No Known Allergies; iw - Home Meds: 07:49 Singulair 10 mg Oral tablet daily [Active]; iw - PMHx: 07:41 Anxiety; mb9 - PSHx: 07:49 tubal ligation; iw - Immunization history:: Adult Immunizations up to date. - Infectious Disease History:: Denies. - Social history:: Smoking status: Patient denies any tobacco usage or history of. - Family history:: not pertinent. - Hospitalizations: : No recent hospitalization is reported. ROS: 08:01 Constitutional: Positive for subjective fever and chills ENT: Positive for nasal rn congestion Cardiovascular: Positive for chest pressure Respiratory: Positive for cough, negative for hemoptysis Abdomen/GI: Negative for abdominal pain MS/Extremity: Negative for injury and deformity, Neuro: Negative for headache, weakness, numbness, tingling, and seizure, Exam: 08:01 Constitutional: This is a well developed, well nourished patient who is awake, alert, rn and in no acute distress. Head/Face: Normocephalic, atraumatic. ENT: No stridor Cardiovascular: Regular rate and rhythm. No pulse deficits. Respiratory: Clear bilateral breath sounds. No wheezing. No retractions. Speaking full sentences. Vital Signs: 07:46 BP 127 / 90; Pulse 78; Resp 18; Temp 97; Pulse Ox 100% on R/A; Weight 86.18 kg; Height iw 5 ft. 3 in. ; 08:36 BP 129 / 84; Pulse 74; Resp 16; Pulse Ox 100% on R/A; mb9 09:46 BP 116 / 84; Pulse 74; Resp 18; Pulse Ox 100% on R/A; mb9 07:46 Body Mass Index 33.66 (86.18 kg, 160.02 cm) iw MDM: 07:39 Patient medically screened. rn 09:11 Differential diagnosis: anxiety, pleurisy, pneumonia, pneumothorax. Data reviewed: rn vital signs, nurses notes, lab test result(s), radiologic studies, plain films, and as a result, I will discharge patient. Counseling: I had a detailed discussion with the patient and/or guardian regarding the historical points, exam findings, and any diagnostic results supporting the discharge/admit diagnosis, lab results, radiology results, the need for outpatient follow up, to return to the emergency department if symptoms worsen or persist or if there are any questions or concerns that arise at home. Special discussion: I discussed with the patient/guardian in detail that at this point there is no indication for admission to the hospital. It is understood, however, that if the symptoms persist or worsen the patient needs to return immediately for re-evaluation. 06/18 07:47 Order name: SARS RAPID; Complete Time: 08:32 rn 06/18 07:47 Order name: Flu; Complete Time: 08:32 rn 06/18 07:47 Order name: XRAY Chest (1 view); Complete Time: 08:54 rn Administered Medications: No medications were administered Disposition Summary: 06/18/24 09:12 Discharge Ordered Notes: Location: Home rn Problem: new rn Symptoms: have improved rn Condition: Stable rn Diagnosis - Cough rn - Acute upper respiratory infection, unspecified rn Followup: rn - With: Private Physician - When: As needed - Reason: Recheck today's complaints, Re-evaluation by your physician Discharge Instructions: - Discharge Summary Sheet rn - Upper Respiratory Infection, Adult rn - Cough, Adult rn Forms: - Medication Reconciliation Form rn - Antibiotic landscape maintenance internship - Prescription Opioid Use rn - Patient Portal Instructions rn - Leadership Thank You Letter rn Prescriptions: - Zithromax Z-Tera 250 mg Oral Tablet - take 1 tablet ORAL route as directed for 5 days Day 1 - take two (2) tablets rn one time. Day 2, 3, 4 , 5 take one (1) tablet once daily.; 6 tablet; Refills: 0, Product Selection Permitted Signatures: Dispatcher [employer] Megan Quintero, RN Dany Swanson MD MD rn Wilkerson, Linda Salguero RN RN mb9
--- NOTE | 2024-06-18 09:12 | ER ---
Nurse's Notes [facility] Name: Nataliia Allen Age: 33 yrs Sex: Female : 1990 Arrival Date: 06/18/2024 Time: 07:33 Bed 5 Private MD: Diagnosis: Cough;Acute upper respiratory infection, unspecified Presentation: 06/18 07:46 Chief complaint: Patient states: feels like she has bronchitis, also has chest iw [pressure and stabbing pain with a cough. Coronavirus screen: Client presents with at least one sign or symptom that may indicate coronavirus-19. Ebola Screen: No symptoms or risks identified at this time. Initial Sepsis Screen: Does the patient meet any 2 criteria? No. Patient's initial sepsis screen is negative. Does the patient have a suspected source of infection? No. Patient's initial sepsis screen is negative. Risk Assessment: Do you want to hurt yourself or someone else? Patient reports no desire to harm self or others. Onset of symptoms was June 18, 2024. 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 - Infectious Disease History:: Denies. - Social history:: Smoking status: Patient denies any tobacco usage or history of. - Family history:: not pertinent. - Hospitalizations: : No recent hospitalization is reported. Screenin:40 [facility] ED Fall Risk Assessment (Adult) History of falling in the last 3 months, mb9 including since admission No falls in past 3 months (0 pts) Confusion or Disorientation No (0 pts) Intoxicated or Sedated No (0 pts) Impaired Gait No (0 pts) Mobility Assist Device Used No (0 pt) Altered Elimination No (0 pt) Score/Fall Risk Level 0 - 2 = Low Risk Oriented to surroundings, Maintained a safe environment, Educated pt \T\ family on fall prevention, incl call for assistance when getting out of bed. Abuse screen: Denies threats or abuse. Nutritional screening: No deficits noted. Tuberculosis screening: No symptoms or risk factors identified. Assessment: 07:54 General: Appears in no apparent distress. Behavior is calm, cooperative. Pain: Denies mb9 pain. Neuro: Taylor Agitation-Sedation Scale (RASS): 0 - Alert and Calm Level of Consciousness is awake, alert, obeys commands, Oriented to person, place, time, situation, Appropriate for age. Cardiovascular: Heart tones S1 S2 present Patient's skin is warm and dry. Respiratory: Reports cough that is Airway is patent Respiratory effort is even, unlabored, Respiratory pattern is regular, symmetrical, Breath sounds are clear bilaterally. GI: Abdomen is round non-distended, Bowel sounds present X 4 quads. Abd is soft and non tender X 4 quads. Patient currently denies diarrhea, nausea, vomiting. : No signs and/or symptoms were reported regarding the genitourinary system. EENT: Reports nasal congestion. Derm: Skin is pink, warm \T\ dry. Musculoskeletal: Range of motion: intact in all extremities. 09:46 Reassessment: No changes from previously documented assessment. Patient and/or family mb9 updated on plan of care and expected duration. Pain level reassessed. Patient is alert, oriented x 3, equal unlabored respirations, skin warm/dry/pink. Vital Signs: 07:46 BP 127 / 90; Pulse 78; Resp 18; Temp 97; Pulse Ox 100% on R/A; Weight 86.18 kg; Height iw 5 ft. 3 in. ; 08:36 BP 129 / 84; Pulse 74; Resp 16; Pulse Ox 100% on R/A; mb9 09:46 BP 116 / 84; Pulse 74; Resp 18; Pulse Ox 100% on R/A; mb9 07:46 Body Mass Index 33.66 (86.18 kg, 160.02 cm) iw ED Course: 07:37 Patient arrived in ED. ra3 07:39 Dany Thorne MD is Attending Physician. rn 07:40 Linda Larson RN is Primary Nurse. mb9 07:41 Arm band placed on. mb9 07:41 Placed in gown. Bed in low position. Call light in reach. Side rails up X 1. Provided mb9 Education on: press call light if needing anything. Client placed on continuous cardiac and pulse oximetry monitoring. NIBP monitoring applied. 07:49 Triage completed. iw 07:53 COVID swab sent to lab. Flu and/or RSV swab sent to lab. mb9 07:55 No provider procedures requiring assistance completed. mb9 08:37 XRAY Chest (1 view) In Process Unspecified. EDMS 09:46 Patient did not have IV access during this emergency room visit. mb9 Administered Medications: No medications were administered Medication: 07:41 VIS not applicable for this client. mb9 Outcome: 09:12 Discharge ordered by . rn 09:46 Discharged to home ambulatory, mb9 09:46 Condition: stable 09:46 Discharge instructions given to patient, Instructed on discharge instructions, follow up and referral plans. Demonstrated understanding of instructions, follow-up care, medications, Prescriptions given X 1, 09:47 Patient left the ED. mb9 Signatures: Dispatcher [employer] Megan Quintero, RN Dany Swanson MD MD rn Wilkerson, DHARMESH Kumar RN, Ruby ra3
[2024-06-18 09:51] VITALS: TEMP 97; O2SAT 100
[2024-06-18 09:54] VITALS: BP 116/84
== END 2024-06-18 09:47 | disposition home or self-care (01) ==
LOC: ER 07:33
DX: J06.9 Acute upper respiratory infection, unspecified (principal); Z11.52 Encounter for screening for COVID-19
CPT/HCPCS: 36415; 71045; 87804; 87811; 99284

== ENCOUNTER 2024-12-13 07:41 | Emergency (ER) | payer SELFPAY ==
--- OUTSIDE RECORDS SUMMARY | 2024-12-13 07:47 | XMS REPORT | Continuity of Care Document ---
Author Name Unknown Address [address] [facility] [address] [facility] [address] [place] [address] [facility] thconnect Address [address] [place] [address] Care Team Providers Care Monotyper Name Role Phone Mala MARLEY, Vickie Lemus Primary Care Physician Robert Melendrez Attending Clinician [phone] FABY DOHERTY Attending Clinician Unavailable Doctor Unassigned, Blyn Attending Clinician U VICKIE Lee Attending Clinician UnaVickie Mendez MD Attending Clinician + [phone] BREANNA MELO Attending Clinician Unavail able Nurse, [facility] Attending Clini sonia Unavailable Breanna Ortiz Attending Clinician + Vickie Barrera MD Attending Clinician + [phone] ROBERT CROCKER Attending Clinician Unavailable JULITA VALLADARES Attending Clinician Unavailable DANA WALTER Attending Clinician UnavailAUTUMN King Attending Clinician Unavailable Doctor Unassigned, Blyn Attending Clinician U ABDOUL Linton Attending Clinician UnavailSneha Nesbitt Attending Clinician [phone] CARMEN HARDEN Attending Clinician Unavailable Res-Colpo/Leep, [facility] Attending Clinician Un available Carmen Harden MD Attending Clinician [phone] Breanna Ortiz Attending Clinician + CONCEPCION DE LA CRUZ Attending Clinician Unavailable Emani Guerrier Attending Clinician [phone] Lab, Adc Fam Pob I Attending Clinician UnavailFaby Malin Attending Clinician Payers Payer Name Policy Type Policy Number Effective Date Expirati on Date Source [facility] [id number] 2017 00:00:00 [facility] [id number] 2022 00:00:00 Problems Condition Name Condition Details Condition Category Status Onset Date Resolution Date Last Treatment Date Treating Clinician Comments Source Other general counseling and advice for contracept felicitas management Other general counseling and advice for contracept felicitas management Disease Active 06-02 00:00: 00 [facility] Obesity (BMI 30-39.9) Obesity (BMI 30-39.9) Disease Active 06-02 00:00: 00 [facility] History of tubal ligation History of tubal ligation Disease Active 06-02 00:00: 00 [facility] Allergies, Adverse Reactions, Alerts Allergy Name Allergy Type Status Severity Reaction(s) Onset Date Inactive Date Treating Clinician Comments Source NO KNOWN ALLERGIE S Drug Class Active [facility] Social History Social Habit Start Date Stop Date Quantity Comments Source Gender identity [facility] Sexual [facility] Alcoholic beverage intake 2024-05-03 00:00:00 2024-05-03 00:00:00 .14 /d [facility] Tobacco use and exposure 2023-04-26 00:00:00 2023-04-26 00:00:00 Smokeless tobacco non-user [facility] Alcohol intake 2023-04-26 00:00:00 2023-04-26 00:00:00 .14 /d [facility] History of Social function 2023-04-26 00:00:00 2023-04-26 00:00:00 [facility] Exposure to SARS-CoV-2 (event) 2022-05-21 00:00:00 2022-05-31 10:10:00 Not sure [facility] Sex assigned at 1990 00:00:00 1990 00:00:00 [facility] Smoking Status Start Date Stop Date Source Never smoked tobacco [facility] Medications Ordered Medication Name Filled Medication Name Start Date Stop Date Current Medication? Ordering Clinician Indication Dosage Frequency Signature (SIG) Comments Components Source montelukast 10 mg tablet 2023-0 9-10 00:00: 00 Yes 10mg Take 1 tablet by mouth every morning. [facility] escitalopra m oxalate 10 mg tablet 0 8-22 00:00: 00 Yes [id number] 10mg Take 1 tablet by mouth in the morning. [facility] montelukast 10 mg tablet 0 822 00:00: 00 06-25 00:00 :00 No 10mg Take 1 tablet by mouth every morning. [facility] montelukast 10 mg tablet 2023-0 7-24 00:00: 00 06-06 00:00 :00 No 10mg Take 1 tablet by mouth every morning. [facility] escitalopra m oxalate 10 mg tablet 2023-0 7-24 00:00: 00 06-06 00:00 :00 No [id number] 10mg Take 1 tablet by mouth in the morning. [facility] montelukast 10 mg tablet 2023-0 5-20 00:00: 00 05-07 00:00 :00 No 10mg TAKE 1 TABLET BY MOUTH EVERY MORNING [facility] escitalopra m oxalate 10 mg tablet 2023-0 5-20 00:00: 00 05-07 00:00 :00 No [id number] 10mg TAKE 1 TABLET BY MOUTH IN THE MORNING [facility] MONTELUKAST 10 mg tablet 2022-1 0-16 00:00: 00 03-04 00:00 :00 No 10mg TAKE 1 TABLET BY MOUTH EVERY MORNING [facility] montelukast 10 mg tablet 2022-0 8-10 00:00: 00 Yes 10mg Take 1 tablet by mouth every morning. [facility] escitalopra m oxalate (LEXAPRO) 10 mg tablet 7-12 00:00: 00 03-04 00:00 :00 No [id number] 10mg Take 1 tablet by mouth in the morning. [facility] montelukast 10 mg tablet 3-20 00:00: 00 05-25 00:00 :00 No TAKE 1 TABLET BY MOUTH DAILY IN MORNING [facility] MONTELUKAST 10 mg tablet 03-24 00:00: 00 Yes TAKE 1 TABLET BY MOUTH DAILY IN MORNING [facility] ESCITALOPRA M OXALATE 5 mg tablet 03-24 00:00: 00 Yes [id number] 5mg TAKE 1 TABLET BY MOUTH DAILY [facility] diazePAM 5 mg tablet 11-12 00:00: 00 Yes [id number] 5mg Take 1 tablet by mouth 2 (two) times daily as needed for Agitation or Anxiety. [facility] diazePAM 5 mg tablet 2020-10 0-15 00:00: 00 11-12 00:00 :00 No [id number] 5mg Take 1 tablet by mouth 2 (two) times daily as needed for Agitation or Anxiety. [facility] escitalopra m oxalate 5 mg tablet 6- 00:00: 00 03-24 00:00 :00 No [id number] 5mg Take 1 tablet by mouth daily. [facility] diazePAM 10 mg tablet 6-11 00:00: 00 07-14 00:00 :00 No [id number] 10mg Take 1 tablet by mouth 3 (three) times daily. [facility] montelukast 10 mg tablet 10-24 00:00: 00 03-24 00:00 :00 No [facility] Immunizations Ordered Immunization Name Filled Immunization Name Date Status Comments Source HPV9 2024-06-03 00:00:00 Completed [facility] HPV9 2024-05-03 00:00:00 Completed [facility] SARS-COV-2 COVID-19 PFIZER VACCINE 2021-10-25 00:00:00 Completed [facility] SARS-COV-2 COVID-19 PFIZER VACCINE 2021-01-26 00:00:00 Completed [facility] SARS-COV-2 COVID-19 PFIZER VACCINE 2021-01-26 00:00:00 Completed [facility] SARS-COV-2 COVID-19 PFIZER VACCINE 2021-01-26 00:00:00 Completed [facility] SARS-COV-2 COVID-19 PFIZER VACCINE 2021-01-26 00:00:00 Completed [facility] SARS-COV-2 COVID-19 PFIZER VACCINE 2021-01-26 00:00:00 Completed [facility] SARS-COV-2 COVID-19 PFIZER VACCINE 2021-01-26 00:00:00 Completed [facility] SARS-COV-2 COVID-19 PFIZER VACCINE 2021-01-26 00:00:00 Completed [facility] SARS-COV-2 COVID-19 PFIZER VACCINE 2021-01-05 00:00:00 Completed [facility] SARS-COV-2 COVID-19 PFIZER VACCINE 2021-01-05 00:00:00 Completed [facility] SARS-COV-2 COVID-19 PFIZER VACCINE 2021-01-05 00:00:00 Completed [facility] SARS-COV-2 COVID-19 PFIZER VACCINE 2021-01-05 00:00:00 Completed [facility] SARS-COV-2 COVID-19 PFIZER VACCINE 2021-01-05 00:00:00 Completed [facility] SARS-COV-2 COVID-19 PFIZER VACCINE 2021-01-05 00:00:00 Completed [facility] SARS-COV-2 COVID-19 PFIZER VACCINE 2021-01-05 00:00:00 Completed [facility] SARS-COV-2 COVID-19 PFIZER VACCINE Unknown Completed [facility] SARS-COV-2 COVID-19 PFIZER VACCINE Unknown Completed [facility] SARS-COV-2 COVID-19 PFIZER VACCINE Unknown Completed [facility] SARS-COV-2 COVID-19 PFIZER VACCINE Unknown Completed [facility] SARS-COV-2 COVID-19 PFIZER VACCINE Unknown Completed [facility] SARS-COV-2 COVID-19 PFIZER VACCINE Unknown Completed [facility] HPV9 Unknown Completed [facility] SARS-COV-2 COVID-19 PFIZER VACCINE Unknown Completed [facility] HPV9 Unknown Completed [facility] SARS-COV-2 COVID-19 PFIZER VACCINE Unknown Completed [facility] HPV9 Unknown Completed [facility] SARS-COV-2 COVID-19 PFIZER VACCINE Unknown Completed [facility] HPV9 Unknown Completed [facility] SARS-COV-2 COVID-19 PFIZER VACCINE Unknown Completed [facility] HPV9 Unknown Completed [facility] SARS-COV-2 COVID-19 PFIZER VACCINE Unknown Completed [facility] HPV9 Unknown Completed [facility] SARS-COV-2 COVID-19 PFIZER VACCINE Unknown Completed [facility] HPV9 Unknown Completed [facility] SARS-COV-2 COVID-19 PFIZER VACCINE Unknown Completed [facility] HPV9 Unknown Completed [facility] SARS-COV-2 COVID-19 PFIZER VACCINE Unknown Completed [facility] HPV9 Unknown Completed [facility] SARS-COV-2 COVID-19 PFIZER VACCINE Unknown Completed [facility] HPV9 Unknown Completed [facility] Vital Signs Vital Name Observation Time Observation Value Comments S ource Body temperature 2024-06-03 21:50:00 36.61 Shanel [facility] Systolic blood pressure 2024-05-03 20:16:00 122 mm[Hg] [facility] Diastolic blood pressure 2024-05-03 20:16:00 86 mm[Hg] [facility] Heart rate 2024-05-03 20:16:00 59 /min [facility] Body temperature 2024-05-03 20:16:00 36.11 Shanel [facility] Respiratory rate 2024-05-03 20:16:00 18 /min [facility] Body height 2024-05-03 20:16:[address] [facility] Body weight 2024-05-03 20:16:[address] [facility] BMI 2024-05-03 20:16:00 37.55 kg/m2 [facility] Systolic blood pressure 2021-11-12 15:09:00 113 mm[Hg] [facility] Diastolic blood pressure 2021-11-12 15:09:00 79 mm[Hg] [facility] Heart rate 2021-11-12 15:09:00 83 /min [facility] Body height 2021-11-12 15:09:[address] [facility] Body weight 2021-11-12 15:09:[address] [facility] BMI 2021-11-12 15:09:00 35.43 kg/m2 [facility] Procedures Procedure Date / Time Performed Performing Clinician Source GARDASIL 9 (HPV 9V) VACCINE 2024-06-03 21:50:32 Breanna Melo [facility] POCT URINALYSIS W/O SPECIFIC GRAVITY 2024-05-03 21:23:00 Robert Crocker [facility] THYROID STIMULATING HORMONE 2024-05-03 21:10[facility] GLYC[facility]EMOGLOBIN (A1C) 2024-05-03 21:10:00 Obi [facility] GC & CHLAMYDIA AMPLIFIED ASSAY 2024-05-03 21:10:00 Obi [facility] HIV 1/2 AG-AB WITH REFLEX 2024-05-03 21:10:00 Robert Crocker [facility] HIGH RISK HPV-THIN PREP 2024-05-03 21:10:00 Rocael Crocker [facility] PAP SMEAR-LIQUID BASED-CP 2024-05-03 21:10[facility]IGM 2024-05-03 21:10:00 [facility] GARDASIL 9 (HPV 9V) VACCINE 2024-05-03 21:06:19 Robert Crocker [facility] ASSIGNMENT OF BENEFITS 2023-04-26 19:36:28 Docto r Unassigned, Blyn [facility] Encounters Start Date/Time End Date/Time Encounter Type Admission Type Attending Clinicians Care Facility Care Department Encounter ID Source 2024-11-11 14:30:00 2024-11-11 14:30:00 Outpatient R [facility] [id number] [facility] 2024-06-24 00:00:00 2024-07-27 18:21:00 Patient Secure Msg Robert Crocker [facility] [place] [facility] 1.2.840.114 350.1.13.10 4.2.7.2.686 [id number] [facility] 2024-05-31 00:00:00 2024-07-06 18:24:35 Patient Secure Msg Doctor Unassigned, Blyn Doctor Unassigned, Blyn [facility] [place] [facility] 1.2.840.114 350.1.13.10 4.2.7.2.686 [id number] [facility] 2024-06-25 00:00:00 2024-06-25 07:18:18 Patient Secure Msg Vickie Barrera [facility] 1.2840.114 350.1.13.10 4.2.7.2.686 [id number] [facility] 2024-06-24 00:00:00 2024-06-24 13:32:12 Patient Secure Msg Vickie Barrera [facility] 1.2840.114 350.1.13.10 4.2.7.2.686 [id number] [facility] 2024-06-24 00:00:00 2024-06-24 12:36:24 Patient Secure Msg Vickie Barrera [facility] 1.2840.114 350.1.13.10 4.2.7.2.686 [id number] [facility] 2024-06-24 00:00:00 2024-06-24 09:45:35 Refill Vickie Barrera [facility] 1.2840.114 350.1.13.10 4.2.7.2.686 [id number] [facility] 2024-05-20 00:00:00 2024-06-22 18:22:33 Patient Secure Robert Wilson [facility] [place] [facility] 1..840.114 350.1.13.10 4.2.7.2.686 [id number] [facility] 2024-06-10 16:15:00 2024-06-10 16:15:00 Outpatient VICKIE DAVIS [facility] [id number] [facility] 2024-06-06 00:00:00 2024-06-06 13:19:32 Vickie Andino [facility] 1.840.114 350.1.13.10 4.2.7.2.686 [id number] [facility] 2024-06-03 14:30:00 2024-06-03 16:49:51 Outpatient R BREANNA MELO [facility] [id number] [facility] 2024-06-03 14:30:00 2024-06-03 16:49:51 Nurse Visit Nurse, Yung [facility] Breanna Melo C Nurse, Ang Rmchp Rgv Cprit Obgyn [facility] [place] [facility] 1.840.114 350.1.13.10 4.2.7.2.686 [id number] [facility] 2024-05-07 00:00:00 2024-05-08 08:45:59 Juan Antonio Barrera [facility] 1.840.114 350.1.13.10 4.2.7.2.686 [id number] [facility] 2024-05-03 15:15:00 2024-05-03 16:10:36 Outpatient R ROBERT CROCKER [facility] [id number] [facility] 2024-05-03 15:15:00 2024-05-03 16:10:36 Office Visit Robert Crocker [facility] [place] [facility] 1.2.840.114 350.1.13.10 4.2.7.2.686 [id number] [facility] 2024-03-29 08:30:00 2024-03-29 08:30:00 Outpatient JULITA JESSICA [facility] [id number] [facility] 2024-03-26 13:15:00 2024-03-26 13:15:00 Outpatient ROBERT ROY [facility] [id number] [facility] 2024-03-04 00:00:00 2024-03-04 11:03:52 Juan Antonio Barrera [facility] 1.2.840.114 350.1.13.10 4.2.7.2.686 [id number] [facility] 2024-03-04 00:00:00 2024-03-04 10:30:26 Juan Antonio Barrera [facility] 1.2.840.114 350.1.13.10 4.2.7.2.686 [id number] [facility] 2024-02-15 08:00:00 2024-02-15 08:00:00 Outpatient AUTUMN GALVEZ [facility] [id number] [facility] 2023-08-24 08:00:00 2023-08-24 08:00:00 Outpatient AUTUMN GALVEZ [facility] [id number] [facility] 2023-07-31 00:00:00 2023-07-31 00:00:00 Juan Antonio Barrera [facility] 1.2.840.114 350.1.13.10 4.2.7.2.686 [id number] [facility] 2023-06-12 15:45:00 2023-06-12 15:45:00 Outpatient VICKIE DAVIS [facility] [id number] [facility] 2023-05-31 15:45:00 2023-05-31 15:45:00 Outpatient VICKIE DAVIS [facility] [id number] [facility] 2023-05-29 10:00:00 2023-05-29 10:00:00 Outpatient VICKIE DAVIS [facility] [id number] [facility] 2023-05-25 00:00:00 2023-05-25 00:00:00 Juan Antonio Barrera [facility] MEDICAL OFFICE [facility] 1.2.840.114 350.1.13.10 4.2.7.2.686 [id number] [facility] 2023-05-24 00:00:00 2023-05-24 00:00:00 Juan Antonio Barrera [facility] 1.2.840.114 350.1.13.10 4.2.7.2.686 [id number] [facility] 2023-04-26 15:00:00 2023-04-26 15:00:00 Outpatient VICKIE DAVIS [facility] [id number] [facility] 2023-04-26 00:00:00 2023-04-26 00:00:00 Orders Only Doctor Unassigned, Blyn [facility] 1.2.840.114 350.1.13.10 4.2.7.2.686 [id number] [facility] 2023-03-14 15:15:00 2023-03-14 15:15:00 Outpatient VICKIE DAVIS [facility] [id number] [facility] 2023-03-07 10:15:00 2023-03-07 10:15:00 Outpatient VICKIE DAVIS [facility] [id number] [facility] 2022-12-30 00:00:00 2022-12-30 00:00:00 Juan Antonio Workmanjasondariela [facility] 1.2.840.114 350.1.13.10 4.2.7.2.686 [id number] [facility] 2022-09-05 16:30:00 2022-09-05 16:30:00 Outpatient VICKIE DAVIS [facility] [id number] [facility] 2022-06-01 09:00:00 2022-06-01 09:00:00 Outpatient ABDOUL SERVIN [facility] [id number] [facility] 2022-03-24 00:00:00 2022-03-24 00:00:00 Juan Antonio Workmanwolfgang [facility] 1.2.840.114 350.1.13.10 4.2.7.2.686 [id number] [facility] 2021-11-12 09:15:00 2021-11-12 09:23:27 [facility] 1.2.840.114 350.1.13.10 4.2.7.2.686 [id number] [facility] 2021-11-12 09:15:00 2021-11-12 09:15:00 Outpatient VICKIE DAVIS [facility] [id number] [facility] 2021-11-09 13:00:00 2021-11-09 13:00:00 Outpatient VICKIE DAVIS [facility] [id number] [facility] 2021-11-04 09:45:00 2021-11-04 09:45:00 Outpatient Luz Marina FARIASDARIELA VICKIE [facility] [id number] [facility] 2021-11-03 00:00:00 2021-11-03 00:00:00 Telephone Jacintawolfgang Vickie Allan [facility] CATHRYN [facility] 1.84.114 350.1.13.10 4.2.7.2.686 [id number] [facility] 2021-10-27 13:00:00 2021-10-27 13:00:00 Outpatient Luz Marina BARRERA VICKIE [facility] [id number] [facility] 2021-10-27 00:00:00 2021-10-27 00:00:00 Orders Only Doctor Unassigned, Blyn [facility] 1.114 350.1.13.10 4.2.7.2.686 [id number] [facility] 2021-10-22 08:45:00 2021-10-22 08:45:00 Outpatient VICKIE DAVIS [facility] [id number] [facility] 2021-10-13 00:00:00 2021-10-13 00:00:00 Case Management Sneha Denise [facility] .114 350.1.13.10 4.2.7.2.686 [id number] [facility] 2021-09-23 09:00:00 2021-09-23 09:49:22 Outpatient CARMEN DAUGHERTY [facility] [id number] [facility] 2021-09-23 08:52:14 2021-09-23 09:49:22 Office Visit Res[facility]Colpo[facility]L eep, [facility] Harden [facility] 1.114 350.1.13.10 4.2.7.2.686 [id number] [facility] 2021-09-23 09:00:00 2021-09-23 09:00:00 Outpatient CARMEN DAUGHERTY [facility] [id number] [facility] 2021-09-23 08:30:00 2021-09-23 08:30:00 Outpatient CARMEN DAUGHERTY [facility] [id number] [facility] 2021-09-23 08:30:00 2021-09-23 08:30:00 Outpatient CARMEN DAUGHERTY [facility] [id number] [facility] 2021-09-23 00:00:00 2021-09-23 00:00:00 Orders Only Doctor Unassigned, Blyn [facility] 1..840.114 350.1.13.10 4.2.7.2.686 [id number] [facility] 2021-07-30 09:46:50 2021-07-30 10:01:50 Office Visit Vickie Barrera [facility] 1..840.114 350.1.13.10 4.2.7.2.686 [id number] [facility] 2021-07-30 10:00:00 2021-07-30 10:00:00 Outpatient VICKIE DAVIS [facility] [id number] [facility] 2021-07-21 10:15:00 2021-07-21 10:15:00 Outpatient VICKIE DAVIS [facility] [id number] [facility] 2021-07-19 00:00:00 2021-07-19 00:00:00 Patient Secure Msg Breanna Melo [facility] [place] [facility] 1..840.114 350.1.13.10 4.2.7.2.686 [id number] [facility] 2021-07-14 00:00:00 2021-07-14 00:00:00 Vickie Andino [facility] 1.840.114 350.1.13.10 4.2.7.2.686 [id number] [facility] 2021-07-06 00:00:00 2021-07-06 00:00:00 Telephone Breanna Melo [facility] [place] [facility] 1.2840.114 350.1.13.10 4.2.7.2.686 [id number] [facility] 2021-06-22 00:00:00 2021-06-22 00:00:00 Telephone Breanna Melo [facility] [place] [facility] 1.840.114 350.1.13.10 4.2.7.2.686 [id number] [facility] 2021-06-22 00:00:00 2021-06-22 00:00:00 Telephone Breanna Melo [facility] [place] [facility] 1.840.114 350.1.13.10 4.2.7.2.686 [id number] [facility] 2021-06-22 00:00:00 2021-06-22 00:00:00 Telephone Breanna Melo [facility] [place] [facility] 1.2.840.114 350.1.13.10 4.2.7.2.686 [id number] [facility] 2021-06-08 00:00:00 2021-06-08 00:00:00 Patient Secure Msg Breanna Melo [facility] [place] [facility] 1.2840.114 350.1.13.10 4.2.7.2.686 [id number] [facility] 2021-06-02 09:36:52 2021-06-02 10:53:26 Office Visit Breanna Melo [facility] [place] [facility] 1.840.114 350.1.13.10 4.2.7.2.686 [id number] [facility] 2021-06-02 09:30:00 2021-06-02 09:30:00 Outpatient BREANNA ROBERSON [facility] [id number] [facility] [facility] 2021-04-23 11:01:51 2021-04-23 11:16:51 Office Visit Vickie Barrera [facility] Office [facility] [id number] [id number] [facility] 2021-04-23 11:00:00 2021-04-23 11:00:00 Outpatient VICKIE DAVIS [facility] [id number] [facility] 2021-04-23 00:00:00 2021-04-23 00:00:00 Orders Only Doctor Unassigned, Blyn [facility] [id number] [facility] 2021-03-26 13:17:30 2021-03-26 13:47:30 Office Visit Vickie Barrera [facility] Office Building One .840.114 [id number] [facility] 2021-03-26 13:30:00 2021-03-26 13:30:00 Outpatient VICKIE DAVSI [facility] [id number] [facility] 2021-01-26 14:10:00 2021-01-26 14:03:34 Outpatient CONCEPCION BARTH [facility] [id number] [facility] 2020-08-29 00:00:00 2020-08-29 00:00:00 Telephone YannickEmani colunga Luz Marina [facility] 1..114 [id number] [facility] 2020-08-28 15:13:22 2020-08-28 15:43:50 Laboratory Only Lab, Adc [facility] P[facility] [id number] [facility] Results Test Description Test Time Test Comments Results Result Co mments Source [facility] WITH [id number] 05:37:10* Test Item Value Reference Range Interpretation Comme [facility] HIV Semi-quantitative (test code = 85260-9) 0.10 Negative VALERIA (test code = VALERIA) Non-reactive for HIV-1 antigen and HIV-1/HIV-2 antibodies. ?No laboratory evidence of HIV infection. ?Repeat in 2-4 weeks if acute HIV infection is suspected. [facility]2024-05-04 05:05:47* Test Item Value Reference Range Interpretation Comme [facility] HGB A1C (test code = 4548-4) 5.2 % 4.0-5.7 VALERIA (test code = VALERIA) Reference RangesNormal: <5.7%Prediabetes: 5.7 - 6.4%Diabetes: > 6.5% Lab Interpretation (test code = 30685-9) Normal [facility] [id number] 04:27:05 * Test Item Value Reference Range Interpretation Comme [facility] TSH (test code = 2500715471) 0.99 0.45-4.70 Biotin has been reported to cause a negative bias, interpret results relative to patient's use of biotin. Lab Interpretation (test code = 96238-9) Normal [facility] w/o Specific [id number] 21:23:00* Test Item Value Reference Range Interpretation [...] = 3257) neg Negative - Negati ve [facility]
[2024-12-13] MEDS ORDERED: dexAMETHasone 10 MG/ML VIAL ONE (08:10)
[2024-12-13] MEDS ORDERED: AZITHROMYCIN 250 MG TAB ONE (08:10)
[2024-12-13 08:39] LABS: Influenza A Ag Negative; Influenza B Ag Negative; SARS-CoV-2 Antigen Rapid Res Negative (Negative)
--- NOTE | 2024-12-13 08:53 | ER ---
Nurse's Notes [facility] Name: Nataliia Allen Age: 34 yrs Sex: Female : 1990 Arrival Date: 12/13/2024 Time: 07:41 Bed DX3 Private MD: Diagnosis: Acute upper respiratory infection, unspecified;Acute pharyngitis, unspecified;Cough Presentation: 12/13 07:52 Chief complaint: Patient states: Sore throat, dry cough, nasal congestion x 5 days. jl7 Coronavirus screen: Client presents with at least one sign or symptom that may indicate coronavirus-19. Ebola Screen: No symptoms or risks identified at this time. Initial Sepsis Screen: Does the patient meet any 2 criteria? No. Patient's initial sepsis screen is negative. Does the patient have a suspected source of infection? No. Patient's initial sepsis screen is negative. Risk Assessment: Do you want to hurt yourself or someone else? Patient reports no desire to harm self or others. Onset of symptoms was December 09, 2024. 07:52 Method Of Arrival: Ambulatory [facility] 07:52 Acuity: GITA 4 jl7 Triage Assessment: 07:53 General: Appears in no apparent distress. uncomfortable, Behavior is calm, cooperative, jl7 appropriate for age. Pain: Complains of pain in sore throat Pain currently is 5 out of 10 on a pain scale. EENT: Throat is reddened. 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 - Infectious Disease History:: Denies. - Social history:: Smoking status: Patient denies any tobacco usage or history of. Screenin:00 [facility] ED Fall Risk Assessment (Adult) History of falling in the last 3 months, jl7 including since admission No falls in past 3 months (0 pts) Confusion or Disorientation No (0 pts) Intoxicated or Sedated No (0 pts) Impaired Gait No (0 pts) Mobility Assist Device Used No (0 pt) Altered Elimination No (0 pt) Score/Fall Risk Level 0 - 2 = Low Risk Oriented to surroundings, Maintained a safe environment. Abuse screen: Denies threats or abuse. Denies injuries from another. Nutritional screening: No deficits noted. Tuberculosis screening: No symptoms or risk factors identified. Vital Signs: 07:52 BP 120 / 89; Pulse 75; Resp 16; Temp 97.7; Pulse Ox 100% ; Weight 95.25 kg; Height 5 jl7 ft. 3 in. ; Pain 5/10; 07:52 Body Mass Index 37.20 (95.25 kg, 160.02 cm) jl7 07:52 Pain Scale: Adult 7 ED Course: 07:45 Patient arrived in ED. mr 07:49 Adryan Bejarano MD is Attending Physician. [facility] 07:53 Triage completed. jl7 07:53 Arm band placed on right wrist. jl7 08:06 Dimas Brown RN is Primary Nurse. jl7 09:00 Patient has correct armband on for positive identification. Provided Education on: jl7 discharge. 09:00 No provider procedures requiring assistance completed. Patient did not have IV access jl7 during this emergency room visit. Administered Medications: 08:10 Drug: AZITHromycin PO 500 mg PO once Route: PO; jl7 08:30 Follow up: Response: No adverse reaction 7 08:10 Drug: Dexamethasone PO 10 mg PO once Route: PO; jl7 08:30 Follow up: Response: No adverse reaction jl7 Medication: 09:00 VIS not applicable for this client. jl7 Outcome: 08:53 Discharge ordered by . [facility] 09:07 Discharged to home ambulatory, 7 09:07 Condition: stable 09:07 Discharge instructions given to patient, Instructed on discharge instructions, follow up and referral plans. medication usage, Demonstrated understanding of instructions, follow-up care, medications, Prescriptions given X 3, 09:09 Patient left the ED. jl7 Signatures: Adryan Bejarano MD MD cha Rivera, Mary, [facility] Reg mr Dimas Brown, RN RN jl7
--- NOTE | 2024-12-13 08:53 | EDPHYS ---
Physician Documentation [facility] Name: Nataliia Allen Age: 34 yrs Sex: Female : 1990 Arrival Date: 12/13/2024 Time: 07:41 Bed DX3 Private MD: TEREZA Physician Adryan Bejarano HPI: 12/13 08:05 This 34 yrs old Female presents to ER via Ambulatory with complaints of Sore dawson Throat, Cough. 08:05 The patient presents with sore throat. The patient describes throat pain as burning, dawson constant. Onset: The symptoms/episode began/occurred 1 day(s) ago. Severity of symptoms: At their worst the symptoms were mild, in the emergency department the symptoms are unchanged. Modifying factors: The symptoms are alleviated by nothing, fluids, the symptoms are aggravated by swallowing. Associated signs and symptoms: The patient has no apparent associated signs or symptoms. The patient has experienced similar episodes in the past, a few times. 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 - Infectious Disease History:: Denies. - Social history:: Smoking status: Patient denies any tobacco usage or history of. ROS: 08:09 Constitutional: Negative for fever, chills, and weight loss, Eyes: Negative for injury, dawson pain, redness, and discharge, Neck: Negative for injury, pain, and swelling, Cardiovascular: Negative for chest pain, palpitations, and edema, Respiratory: Negative for shortness of breath, cough, wheezing, and pleuritic chest pain, Abdomen/GI: Negative for abdominal pain, nausea, vomiting, diarrhea, and constipation, Back: Negative for injury and pain, : Negative for injury, bleeding, discharge, and swelling, MS/Extremity: Negative for injury and deformity, Skin: Negative for injury, rash, and discoloration, Neuro: Negative for headache, weakness, numbness, tingling, and seizure, Psych: Negative for depression, anxiety, suicide ideation, homicidal ideation, and hallucinations, Allergy/Immunology: Negative for hives, rash, and allergies, Endocrine: Negative for neck swelling, polydipsia, polyuria, polyphagia, and marked weight changes, Hematologic/Lymphatic: Negative for swollen nodes, abnormal bleeding, and unusual bruising, 08:09 ENT: Positive for nasal discharge, rhinorrhea, sore throat, Exam: 08:09 Constitutional: This is a well developed, well nourished patient who is awake, alert, dawson and in no acute distress. Head/Face: Normocephalic, atraumatic. Eyes: Pupils equal round and reactive to light, extra-ocular motions intact. Lids and lashes normal. Conjunctiva and sclera are non-icteric and not injected. Cornea within normal limits. Periorbital areas with no swelling, redness, or edema. Neck: Trachea midline, no thyromegaly or masses palpated, and no cervical lymphadenopathy. Supple, full range of motion without nuchal rigidity, or vertebral point tenderness. No Meningismus. Chest/axilla: Normal chest wall appearance and motion. Nontender with no deformity. No lesions are appreciated. Cardiovascular: Regular rate and rhythm with a normal S1 and S2. No gallops, murmurs, or rubs. Normal PMI, no JVD. No pulse deficits. Respiratory: Lungs have equal breath sounds bilaterally, clear to auscultation and percussion. No rales, rhonchi or wheezes noted. No increased work of breathing, no retractions or nasal flaring. Abdomen/GI: Soft, non-tender, with normal bowel sounds. No distension or tympany. No guarding or rebound. No evidence of tenderness throughout. Back: No spinal tenderness. No costovertebral tenderness. Full range of motion. Skin: Warm, dry with normal turgor. Normal color with no rashes, no lesions, and no evidence of cellulitis. MS/ Extremity: Pulses equal, no cyanosis. Neurovascular intact. Full, normal range of motion., bilateral aka Neuro: Awake and alert, GCS 15, oriented to person, place, time, and situation. Cranial nerves II-XII grossly intact. Motor strength 5/5 in all extremities. Sensory grossly intact. Cerebellar exam normal. Normal gait. Psych: Awake, alert, with orientation to person, place and time. Behavior, mood, and affect are within normal limits. 08:09 ENT: Mouth: is normal, Posterior pharynx: Airway: normal, no evidence of obstruction, Tonsils: bilaterally enlarged, Uvula: edematous, swelling, that is mild, erythema, that is mild, exudate, is not appreciated, Vital Signs: 07:52 BP 120 / 89; Pulse 75; Resp 16; Temp 97.7; Pulse Ox 100% ; Weight 95.25 kg; Height 5 jl7 ft. 3 in. ; Pain 5/10; 07:52 Body Mass Index 37.20 (95.25 kg, 160.02 cm) 7 07:52 Pain Scale: Adult 7 MDM: 07:50 Medical Screening Exam initiated [facility] 08:11 Differential diagnosis: Allergic rhinitis, echovirus infection, epiglottitis, group A dawson strep tonsillitis, influenza, laryngitis, peritonsillar abscess pharyngitis, tonsillitis, tracheobronchitis, upper respiratory infection, uvulitis. Differential Diagnosis: Obstructed Airway Bronchitis Influenza Upper Respiratory Infection Sinusitis Pharyngitis Viral Syndrome Pneumonia. Data reviewed: vital signs, nurses notes, lab test result(s). Consideration of Admission/Observation Escalation of care including admission/observation considered. I considered the following discharge prescriptions or medication management in the emergency department Medications were administered in the Emergency Department. See MAR. Test considered but Not performed: Labs: no cbc, no comp met. Care significantly affected by the following chronic conditions: anxiety. 12/13 07:55 Order name: COVID-19 Ag + Flu A+B Ag; Complete Time: 08:52 [facility] 12/13 07:55 Order name: Group A Streptococcus Rapid; Complete Time: 08:52 [facility] 12/13 08:36 Order name: Throat Culture EDMS Administered Medications: 08:10 Drug: AZITHromycin PO 500 mg PO once Route: PO; 7 08:30 Follow up: Response: No adverse reaction jl7 08:10 Drug: Dexamethasone PO 10 mg PO once Route: PO; jl7 08:30 Follow up: Response: No adverse reaction jl7 Disposition Summary: 12/13/24 08:53 Discharge Ordered Notes: Location: Home dawson Problem: new dawson Symptoms: have improved dawson Condition: Stable dawson Diagnosis - Acute upper respiratory infection, unspecified dawson - Acute pharyngitis, unspecified dawson - Cough dawson Followup: dawson - With: Private Physician - When: 2 - 3 days - Reason: Recheck today's complaints, Re-evaluation by your physician Discharge Instructions: - Discharge Summary Sheet [facility] - Pharyngitis dawson - Sore Throat [facility] - Upper Respiratory Infection, Adult dawson - Upper Respiratory Infection, Adult, Ikgk-gu-Fqgq dawson - Pharyngitis, Fqrc-sg-[id number] dawson - Cough, Adult, Llmt-es-Vxck dawson - Viral Respiratory Infection, Uxpb-Og-Zyco [facility] - Cough, Adult [facility] Forms: - Medication Reconciliation Form [facility] - Antibiotic Education [facility] - Prescription Opioid Use [facility] - Patient Portal Instructions [facility] - Leadership Thank You Letter [facility] Prescriptions: - Lauren-D 12 Hour 60-120 mg Oral Tablet Sustained Release 12 hr - take 1 tablet ORAL route every 12 hours As needed; 20 tablet; Refills: 0, [facility] Product Selection Permitted - Tessalon Perles 100 mg Oral capsule - take 2 capsule ORAL route every 8 hours As needed; 30 capsule; Refills: 0, [facility] Product Selection Permitted - Zithromax 500 mg Oral Tablet - take 1 tablet ORAL route once daily for 5 days; 5 tablet; Refills: 0, Product [facility] Selection Permitted 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 EDMS EDMS 07:55 07:55 Group A Streptococcus Rapid Sc+I.LAB.BRZ ordered. EDMS EDMS
[2024-12-13 09:21] VITALS: BP 120/89; TEMP 97.7; O2SAT 100
== END 2024-12-13 09:09 | disposition home or self-care (01) ==
LOC: ER 07:41
DX: J06.9 Acute upper respiratory infection, unspecified (principal); J02.9 Acute pharyngitis, unspecified; R05.9 Cough, unspecified; Z11.52 Encounter for screening for COVID-19
CPT/HCPCS: 36415; 87070; 87428; 99283; J1100